=== PATIENT | female | born 1940 | race Caucasian/White ===

== ENCOUNTER 2016-07-23 06:32 | Day surgery (SDC) | payer MEDICARE, BC ==
[~2016-07-23 06:32] MED LIST: KETOROLAC TROMETHAMINE 0.45% 4 DROP/0.4 ML DROPERETTE OS PRN
[2016-07-23] MEDS: TROPICAMIDE 1% OPH SOLN 3 ML OS PRN ×3 (06:54→07:14)
[2016-07-23] MEDS: CYCLOPENTOLATE 0.2%/PHENYLEPHRINE 1% OPH SOLN 2 ML OS PRN ×3 (06:54→07:14)
[2016-07-23] MEDS: BESIFLOXACIN HCL 0.6% OPH SUSP 5 ML BOTTLE OS PRN ×4 (06:54→07:52)
[2016-07-23] MEDS: TETRACAINE HCL 0.5% OPH SOLN 2 ML OS PRN ×4 (06:55→07:35)
[2016-07-23] MEDS ORDERED: MIDAZOLAM 2 MG/2 ML INJ ONE (07:06)
[2016-07-23] MEDS ORDERED: LIDOCAINE 1% INJ-PF (10 MG/ML) 30 ML SDV ONE (07:07)
[2016-07-23] MEDS ORDERED: EPINEPHRINE INJ/PF 1 MG/1 ML AMPULE ONE (07:07)
[2016-07-23] MEDS ORDERED: CHONDR SU A NA/HYALUR INTRAOC KIT (SURGICARE) ONE (07:08)
--- NOTE | 2016-07-27 11:59 | [facility] DISCHARGE SUMMARY E ---
[facility] Discharge Summary NAME: NICOLA GONZALEZ AGE: 75Y ADMITTED: 07/23/2016 DISCHARGED: 07/23/2016 HISTORY OF PRESENT ILLNESS AND HOSPITAL COURSE: This is a 75-year-old female who underwent cataract extraction of her left eye. DIAGNOSIS: Cataract, left eye. HOSPITAL COURSE: She underwent surgery because she was having difficulty with glare from headlights, difficulty seeing medicine bottles. DISCHARGE INSTRUCTIONS: 1. She should be on a regular diet. 2. No bending at her waist and no heavy lifting. 3. She should use her Besivance, Ilevro, and Durezol at 3 p.m. and 8 p.m. and sleep with a rigid shield. 4. I will see her for her one-day postoperative tomorrow. DICTATING PHYSICIAN: TARA GONZALEZ M.D. [id number] PHY#: [id number] ID: [id number] JOB#: [id number] ACCT: [id number] cc:TARA GONZALEZ M.D. >
--- NOTE | 2016-07-27 11:59 | [facility] OPERATIVE REPORT E ---
[facility] Operative Report NAME: NICOLA GONZALEZ AGE: 75Y DATE OF SURGERY: 07/23/2016 ROOM: PREOPERATIVE DIAGNOSIS: Cataract, left eye. POSTOPERATIVE DIAGNOSIS: Cataract, left eye. OPERATION: Cataract extraction with intraocular lens implant of the left eye. SURGEON: TARA GONZALEZ M.D. ANESTHESIA: Topical. PROCEDURE: After obtaining appropriate consent, the patient's left eye was prepped and draped in sterile fashion as well as the surgeon in a sterile manner and cataract surgery was started. First a paracentesis blade was used to make a small side-port incision. Viscoelastic was used to inflate the anterior chamber. Next a 2.4 mm incision was made with the paracentesis blade. A continuous capsulorrhexis incision was made using a cystotome and Utrata forceps. Following this hydrodissection was carried out to make the lens fully loose and mobile and it was rotated 90 degrees. Following this, a tbwymh-oqm-tovejmm technique was used to phacoemulsify the lens with a CDE of 6.69. The remaining cortex was removed with irrigation/aspiration. Provisc was instilled into the capsular bag to inflate the bag. A SN60WF, 20.0 diopter lens was placed. The remaining viscoelastic material was removed with irrigation/aspiration. Following this, a 10-0 nylon suture was used to close the incision and it was found to be watertight. Vigamox was instilled in the eye and a protective shield was placed over the eye. The patient returned to the postoperative recovery in stable condition. DICTATING PHYSICIAN: TARA GONZALEZ M.D. [id number] PHY#: [id number] ID: [id number] JOB#: [id number] ACCT: [id number] cc:TARA GONZALEZ M.D. >
== END 2016-07-23 08:33 | disposition home or self-care (01) ==
LOC: SC 06:32
PROVIDERS: ATTEND Internal Medicine
PROC: 08RK3JZ Replacement of Left Lens with Synthetic Substitute, Percutaneous Approach (ICD-10-PCS; principal; 2016-07-23 07:30)
DX: H25.813 Combined forms of age-related cataract, bilateral (principal); M06.9 Rheumatoid arthritis, unspecified; E03.9 Hypothyroidism, unspecified; I10 Essential (primary) hypertension; J30.2 Other seasonal allergic rhinitis; Z87.891 Personal history of nicotine dependence; Z79.82 Long term (current) use of aspirin; Z79.899 Other long term (current) drug therapy
CPT/HCPCS: 66984; V2632; J2250; J3490 ×2; A9270; J0171; 142

== ENCOUNTER 2018-03-10 07:25 | Day surgery (SDC) | payer MEDICARE, BC ==
[~2018-03-10 07:25] MED LIST changes: +CHONDR SU A NA/HYALUR INTRAOC KIT (SURGICARE) ONE; +EPINEPHRINE INJ/PF 1 MG/1 ML AMPULE ONE; +KETOROLAC TROMETHAMINE 0.45% 4 DROP/0.4 ML DROPERETTE OD PRN; -KETOROLAC TROMETHAMINE 0.45% 4 DROP/0.4 ML DROPERETTE OS PRN; +LIDOCAINE 1% INJ-PF (10 MG/ML) 30 ML SDV ONE
[2018-03-10] MEDS: TROPICAMIDE 1% OPH SOLN 3 ML OD PRN ×3 (08:15→08:35)
[2018-03-10] MEDS: BESIFLOXACIN HCL 0.6% OPH SUSP 5 ML BOTTLE OD PRN ×3 (08:15→09:01)
[2018-03-10] MEDS: TETRACAINE HCL 0.5% OPH SOLN 4 ML OD PRN ×3 (08:15→08:37)
[2018-03-10] MEDS: CYCLOPENTOLATE 0.2%/PHENYLEPHRINE 1% OPH SOLN 2 ML OD PRN ×3 (08:15→08:35)
[2018-03-10] MEDS ORDERED: MIDAZOLAM 2 MG/2 ML INJ ONE (08:23)
--- NOTE | 2018-03-10 21:12 | [facility] OPERATIVE REPORT E ---
[facility] Operative Report NAME: NICOLA GONZALEZ AGE: 77Y DATE OF SURGERY: 03/10/2018 ROOM: PREOPERATIVE DIAGNOSIS: CATARACT, RIGHT EYE. POSTOPERATIVE DIAGNOSIS: CATARACT, RIGHT EYE. OPERATION: Cataract extraction with insertion of an IOL of the right eye. SURGEON: TARA GONZALEZ M.D. ANESTHESIA: Topical. PROCEDURE: After obtaining appropriate consent, the patient's right eye was prepped and draped in sterile fashion as well as the surgeon in a sterile manner and cataract surgery was started. First a paracentesis blade was used to make a side-port incision. Viscoelastic was used to inflate the anterior chamber. Next a 2.4 mm incision was made with a 2.4 mm blade, clear corneal temporally. A continuous capsulorrhexis was made using a cystotome and Utrata forceps. Following this hydrodissection was carried out to make the lens fully loose and mobile and it was rotated 90 degrees. Following this, a gwxiop-lrm-apaoosl technique was used to phacoemulsify the lens with a CDE of 7.71. The remaining cortex was removed with irrigation/aspiration. Provisc was instilled into the capsular bag to inflate the bag. A SN60WF, 19.0 diopter lens was placed. The remaining viscoelastic material was removed with irrigation/aspiration. Following this, the incision was found to be watertight. Besivance was instilled into the eye and a protective shield was placed over the eye. The patient returned to the postoperative recovery in stable condition. DICTATING PHYSICIAN: TARA GONZALEZ M.D. [id number] PHY#: [id number] ID: [id number] JOB#: [id number] ACCT: [id number] cc:TARA GONZALEZ M.D. >
--- NOTE | 2018-03-10 21:13 | [facility] DISCHARGE SUMMARY E ---
[facility] Discharge Summary NAME: NICOLA GONZALEZ AGE: 77Y ADMITTED: 03/10/2018 DISCHARGED: This is a 77-year-old female who underwent cataract extraction of the right eye. DIAGNOSIS: Cataract right eye. She underwent surgery because she was having trouble seeing words on the television. She should be on a regular diet. No bending at the waist and no heavy lifting. She should use her Besivance, Prolensa, and Durezol at 3:00 p.m. and 8:00 p.m. and sleep with a rigid shield. I will see her for her 1-day postop tomorrow. DICTATING PHYSICIAN: TARA GONZALEZ M.D. [id number] PHY#: [id number] ID: [id number] JOB#: [id number] ACCT: [id number] cc:TARA GONZALEZ M.D. >
== END 2018-03-10 09:41 | disposition home or self-care (01) ==
LOC: SC 07:25
PROVIDERS: ATTEND Internal Medicine
DX: H25.811 Combined forms of age-related cataract, right eye (principal); H43.813 Vitreous degeneration, bilateral; Z96.1 Presence of intraocular lens; I10 Essential (primary) hypertension; M06.9 Rheumatoid arthritis, unspecified; E03.9 Hypothyroidism, unspecified; Z87.891 Personal history of nicotine dependence; Z79.82 Long term (current) use of aspirin; Z79.51 Long term (current) use of inhaled steroids; Z79.899 Other long term (current) drug therapy
CPT/HCPCS: 66984; V2632; J2250; J3490 ×3; A9270; J0171; 142

== ENCOUNTER → 2018-09-14 | Outpatient (CLI) | payer MEDICARE, BC ==
--- NOTE | 2018-09-14 13:36 | RADIOLOGY REPORT (SQ) ---
EXAM DESCRIPTION: BARIUM SWALLOW ESOPHAGUS COMPLETED DATE/TIME: 09/14/2018 8:55 am REASON FOR STUDY: EARLY SATIETY (R68.81) R68.81 EARLY SATIETY COMPARISON: None. TECHNIQUE: Under fluoroscopic guidance, patient ingested effervescent granules followed by thick and thin barium. Fluoroscopic spot images and routine radiographic images acquired and stored on PACS. 12 MM BARIUM TABLET GIVEN: Yes. No significant delay in passage. LIMITATIONS: None. FLUOROSCOPY TIME: FLUORO TIME: 1 minutes 42 seconds of fluoroscopy was used. 8 images saved to PACS. FINDINGS: NEUROMUSCULAR COORDINATION OF SWALLOW: Normal. No aspiration. ESOPHAGEAL MOTILITY: Weak primary peristalsis with tertiary contractions in the distal half esophagus . ESOPHAGEAL MUCOSA: Normal mucosa without masses or ulceration. GASTRO-ESOPHAGEAL JUNCTION: No hiatal hernia. Mild gastroesophageal reflux. 12 mm barium tablet pas sed through the GE junction without delay. NON-GI TRACT STRUCTURES: No significant finding. OTHER: No other significant finding. IMPRESSION: ESOPHAGEAL DYSMOTILITY WITH REFLUX. COMMENT: Quality ID [id number]: Final reports for procedures using fluoroscopy that document radiation exp osure indices, or exposure time and number of fluorographic images (if radiation exposure indices are not available) TECHNICAL DOCUMENTATION: JOB ID: [id number] [employer]- All Rights Reserved Reading location - IP/workstation name: [email or web address]
== END ==
LOC: RAD 08:03
PROVIDERS: ATTEND Physician Assistant
DX: K22.4 Dyskinesia of esophagus (principal); K21.9 Gastro-esophageal reflux disease without esophagitis
CPT/HCPCS: 74220

== ENCOUNTER 2018-11-16 07:39 | Day surgery (SDC) | payer MEDICARE, BC ==
[~2018-11-16 07:39] MED LIST changes: -CHONDR SU A NA/HYALUR INTRAOC KIT (SURGICARE) ONE; +DIPHENHYDRAMINE HCL 50 MG/ML VIAL ONE; +EPINEPHRINE INJ 1 MG/10 ML DISP.SYRIN ONE; -EPINEPHRINE INJ/PF 1 MG/1 ML AMPULE ONE; +FENTANYL CITRATE INJ/PF 100 MCG/2 ML AMPUL ONE; +FLUMAZENIL INJ 0.5 MG/5 ML VIAL ONE; +GLUCAGON,HUMAN RECOMB 1 MG INJ ONE; -KETOROLAC TROMETHAMINE 0.45% 4 DROP/0.4 ML DROPERETTE OD PRN; -LIDOCAINE 1% INJ-PF (10 MG/ML) 30 ML SDV ONE; +NALOXONE HCL INJ/PF 0.4 MG/1 ML SDV ONE; +ONDANSETRON HCL INJ/PF 4 MG/2 ML SDV ONE
[2018-11-16] MEDS: MIDAZOLAM 2 MG/2 ML INJ ONE ×2 (08:00→08:03)
--- NOTE | 2018-11-16 08:15 | Operative Report ---
Operative Report DATE OF SURGERY: 11/16/18 Operative Report: The risks benefits and alternatives of the procedure explained to the patient in detail and informed consent is obtained.A GIF Olympus video scope was inserted into the patient's mouth and hypopharynx, the esophagus is identified intubated and insufflated, the scope was then advanced through the esophagus stomach and duodenum, retroflexion maneuver is done, the esophagus stomach and first and second portions of the duodenum examined. PREOPERATIVE DIAGNOSIS: Epigastric pain POSTOPERATIVE DIAGNOSIS: Gastritis status post biopsy rule out Helicobacter pylori. Gastric nodule/polyp status post biopsy it is suggestive of a inflammatory polyp OPERATION: EGD with biopsy SURGEON: STEPHANIE MEZA ANESTHESIA: Moderate Sedation - 3 mg of Versed, 25 mcg of fentanyl. Conscious sedation monitoring time 30 minutes. TISSUE REMOVED OR ALTERED: As noted above. COMPLICATIONS: None. ESTIMATED BLOOD LOSS: None. INTRAOPERATIVE FINDINGS: As noted above. PROCEDURE: Patient tolerated the procedure well. No immediate postprocedure complications are noted. Patient is discharged in good condition. Discharge date 11/16/2018. Discharge diet: Regular. Discharge activity: Regular. 2 to 3-week follow-up to discuss findings. Patient is instructed to call the office or proceed to the emergency room should there be any further problems or questions. Wait on the pathology.
[2018-11-16 09:23] VITALS: BP 132/65
== END 2018-11-16 09:35 | disposition home or self-care (01) ==
LOC: END 07:39
PROVIDERS: ATTEND Internal Medicine Gastroenterology
DX: K29.50 Unspecified chronic gastritis without bleeding (principal); K31.7 Polyp of stomach and duodenum; I10 Essential (primary) hypertension; E03.9 Hypothyroidism, unspecified; Z87.891 Personal history of nicotine dependence; Z79.899 Other long term (current) drug therapy; Z79.51 Long term (current) use of inhaled steroids
CPT/HCPCS: 43239; 88342 ×2; 88341 ×2; 88305 ×2; J2250; J3010; J0171; J1200; J1610; J2310; J2405; J3490

== ENCOUNTER → 2018-12-07 | Outpatient (CLI) | payer MEDICARE, BC ==
--- NOTE | 2018-12-07 16:25 | RADIOLOGY REPORT (SQ) ---
EXAM DESCRIPTION: CT ABD/PELVIS WITH IV ORAL COMPLETED DATE/TIME: 12/07/2018 10:23 am REASON FOR STUDY: (K31.89)OTHER DISEASES OF STOMACH AND DUODENUM K31.89 OTHER DISEASES OF STOMACH A ND DUODENUM COMPARISON: None. TECHNIQUE: CT scan of the abdomen and pelvis performed with intravenous and oral contrast using [place] scanning technique with dynamic intravenous contrast injection. Images reviewed with lung, soft t issue, and bone windows. Reconstructed coronal and sagittal MPR images reviewed. Delayed images for e valuation of the urinary system also acquired. All images stored on PACS. All CT scanners at this facility use dose modulation, iterative reconstruction, and/or weight based d osing when appropriate to reduce radiation dose to as low as reasonably achievable (ALARA). [facility]: Dose Right [facility]: CareDose [facility]: Dose Right [facility]: Teradose 4D [facility]: CallFire CONTRAST TYPE AND DOSE: contrast/concentration: Isovue 350.00 mg/ml; Total Contrast Delivered: 80.0 ml; Total Saline Delivered: 68.0 ml RENAL FUNCTION: GFR > 60. RADIATION DOSE: CT Rad equipment meets quality standard of care and radiation dose reduction techniq ues were employed. CTDIvol: 9.3 - 11.0 mGy. DLP: 966 mGy-cm.. LIMITATIONS: None. FINDINGS: LOWER CHEST: No significant findings. No nodules or infiltrates. LIVER: Tiny subcentimeter low-density lesion in the central liver without gross enhancement. Probabl e cyst but too small to further characterize. Liver otherwise normal. SPLEEN: Normal size. No focal lesions. PANCREAS: No masses. No significant calcifications. No adjacent inflammation or peripancreatic fluid collections. Pancreatic duct not dilated. GALLBLADDER: Cholelithiasis. No CT evidence acute cholecystitis. ADRENAL GLANDS: No significant masses or asymmetry. RIGHT KIDNEY AND URETER: No solid masses. No significant calcification. No hydronephrosis or hydroure ter. LEFT KIDNEY AND URETER: No solid masses. No significant calcification. No hydronephrosis or hydrouret er. AORTA AND VESSELS: Atherosclerotic. No aneurysm or dissection. Major arterial and venous structures look patent. RETROPERITONEUM: No retroperitoneal adenopathy, hemorrhage or masses. BOWEL AND PERITONEAL CAVITY: No gross gastric mass allowing for limited evaluation. No small bowel o bstruction. No significant hiatal hernia. The cecum projects well across the midline into the left lower quadrant. No overtly suspicious wall thickening. There is diverticulosis throughout the sigmo id colon which is pronounced. Doubt active diverticulitis. APPENDIX: Normal. PELVIS: No significant masses. Normal bladder. No free fluid. ABDOMINAL WALL: No masses. No hernias. BONES: No significant or acute findings. OTHER: No other significant finding. IMPRESSION: 1. Cholelithiasis without CT evidence of acute cholecystitis. 2. Extensive sigmoid diverticulosis without CT suggestion of active diverticulitis. 3. Atherosclerosis. TECHNICAL DOCUMENTATION: JOB ID: [id number] Quality ID # [id number]: Final reports with documentation of one or more dose reduction techniques (e.g., Au tomated exposure control, adjustment of the mA and/or kV according to patient size, use of iterative reconstruction technique) 2010 [employer]- All Rights Reserved Reading location - IP/workstation name: [email or web address]
== END ==
LOC: RAD 09:43
PROVIDERS: ATTEND Surgery
DX: K31.89 Other diseases of stomach and duodenum (principal); K80.20 Calculus of gallbladder without cholecystitis without obstruction; K57.30 Diverticulosis of large intestine without perforation or abscess without bleeding; I70.90 Unspecified atherosclerosis
CPT/HCPCS: 74177; 82565

== ENCOUNTER 2019-01-10 06:01 | Inpatient (IN) | payer MEDICARE, BC ==
[2019-01-02 09:41] LABS: ABSOLUTE BASOPHILS # (AUTO) 0.1 10^3/uL (0.0-0.2); ABSOLUTE EOSINOPHILS # (AUTO) 0.1 10^3/uL (0.0-0.6); ABSOLUTE LYMPHOCYTES (AUTO) 1.2 10^3/uL (0.5-4.7); ABSOLUTE MONOCYTES (AUTO) 0.3 10^3/uL (0.1-1.4); ABSOLUTE NEUT (AUTO) 2.5 10^3/uL (1.7-8.2); BASOPHILS % (AUTO) 1.7 % (0-2); EOSINOPHILS % (AUTO) 2.1 % (0-6); HEMATOCRIT 37.7 % (36.0-47.0); HEMOGLOBIN 12.7 g/dL (12.0-15.5); LYMPHOCYTES % (AUTO) 28.1 % (13-45); MEAN CORPUSCULAR HEMOGLOBIN 28.4 pg (27.0-33.4); MEAN CORPUSCULAR HGB CONC 33.7 g/dL (32.0-36.0); MEAN CORPUSCULAR VOLUME 84 fl (80-97); MONOCYTES % (AUTO) 8.2 % (3-13); PLATELET COUNT 187 10^3/uL (150-450); RED BLOOD COUNT 4.47 10^6/uL (3.72-5.28); RED CELL DISTRIBUTION WIDTH 14.5 % (11.5-14.0); SEGMENTED NEUTROPHILS % (AUTO) 59.9 % (42-78); TOTAL CELLS COUNTED % (AUTO) 100 %; WHITE BLOOD COUNT 4.2 10^3/uL (4.0-10.5)
[2019-01-02 10:07] LABS: ANION GAP 10 (5-19); BLOOD UREA NITROGEN 16 mg/dL (7-20); CALCIUM 9.5 mg/dL (8.4-10.2); CARBON DIOXIDE 27 mmol/L (22-30); CHLORIDE 105 mmol/L (98-107); GLUCOSE 92 mg/dL (75-110); POTASSIUM 4.1 mmol/L (3.6-5.0)
--- NOTE | 2019-01-02 23:44 | EKG REPORT ---
SEVERITY:- NORMAL ECG - SINUS RHYTHM : Confirmed by: Rosalio Cartagena 02-Jan-2019 23:43:28
[~2019-01-10 06:01] MED LIST changes: +CEFAZOLIN SODIUM 1 GM in DEXTROSE 5%-WATER 50 ML IV PRN; +DEXAMETHASONE SOD PHOSPHATE INJ 4 MG/1 ML VIAL ONE; -DIPHENHYDRAMINE HCL 50 MG/ML VIAL ONE; -EPINEPHRINE INJ 1 MG/10 ML DISP.SYRIN ONE; -FENTANYL CITRATE INJ/PF 100 MCG/2 ML AMPUL ONE; -FLUMAZENIL INJ 0.5 MG/5 ML VIAL ONE; -GLUCAGON,HUMAN RECOMB 1 MG INJ ONE; +GLYCOPYRROLATE 1 MG/5 ML VIAL ONE; +KETOROLAC TROMETHAMINE 60 MG/2 ML SDV ONE; +LACTATED RINGERS 1000 ML IV PRN; +LIDOCAINE 0.5% INJ-PF (5 MG/ML) 50 ML SDV SUBCUT PRN; +METRONIDAZOLE 500 MG/NS RTU 500 MG/100 ML RTUPB IV ONE; +METRONIDAZOLE 500 MG/NS RTU 500 MG/100 ML RTUPB IV PRN; -NALOXONE HCL INJ/PF 0.4 MG/1 ML SDV ONE; +NEOSTIGMINE METHYLSULFATE 10 MG/10 ML VIAL ONE; +ROCURONIUM BROMIDE INJ 50 MG/5 ML VIAL IV ONE
[2019-01-10] MEDS ORDERED: PROPOFOL INJ 200 MG/20 ML VIAL IV ONE (07:20)
[2019-01-10] MEDS ORDERED: MIDAZOLAM 2 MG/2 ML INJ ONE (07:20)
[2019-01-10] MEDS ORDERED: HYDROMORPHONE HCL INJ/PF 2 MG/ML AMPULE ONE ×2 (07:20→17:49)
[2019-01-10] MEDS ORDERED: FENTANYL CITRATE INJ/PF 100 MCG/2 ML AMPUL ONE ×2 (07:20→11:54)
[2019-01-10] MEDS ORDERED: LIDOCAINE 2% INJ (20 MG/ML) 20 ML MDV ONE (07:21)
[2019-01-10] MEDS ORDERED: BUPIVACAINE HCL 0.25 % INJ/PF (2.5 MG/1 ML) 30 ML VIAL ONE (07:45)
[2019-01-10] MEDS ORDERED: DIPHENHYDRAMINE HCL 50 MG/ML VIAL IV PRN (09:07)
[2019-01-10] MEDS ORDERED: MORPHINE SULFATE 10 MG/ML INJ IV PRN (09:07)
[2019-01-10] MEDS ORDERED: FENTANYL CITRATE INJ/PF 100 MCG/2 ML AMPUL IV PRN ×3 (09:07)
[2019-01-10] MEDS ORDERED: ONDANSETRON HCL INJ/PF 4 MG/2 ML SDV IV PRN (09:07)
[2019-01-10] MEDS ORDERED: OXYCODONE-ACETAMINOPHEN 5-325 MG TABLET PO PRN ×2 (09:07)
[2019-01-10] MEDS ORDERED: MEPERIDINE HCL/PF INJ 25 MG/1 ML DISP.SYRIN IV PRN (09:07)
[2019-01-10] MEDS ORDERED: BUPIVACAINE INJ/PF LIPOSOME/PF 266 MG/20 ML SDV ONE (10:48)
[2019-01-10] MEDS ORDERED: BUPIVACAINE HCL 0.25 % INJ/PF (2.5 MG/1 ML) 30 ML VIAL INJ ONE (10:58)
[2019-01-10] MEDS ORDERED: BUPIVACAINE INJ/PF LIPOSOME/PF 266 MG/20 ML SDV INJ ONE (10:58)
[2019-01-10] MEDS ORDERED: GLUCAGON,HUMAN RECOMB 1 MG INJ SUBCUT PRN (11:05)
[2019-01-10] MEDS ORDERED: DEXTROSE 40% GEL 15 GM TUBE PO PRN ×2 (11:05)
[2019-01-10] MEDS ORDERED: DEXTROSE 50%-WATER 25 GM/50 ML DISP.SYRIN IV PRN ×2 (11:05)
[2019-01-10] MEDS ORDERED: EPHEDRINE SULFATE INJ 50 MG/1 ML AMPULE ONE (11:18)
[2019-01-10] MEDS ORDERED: CEFAZOLIN 1 GM/D5W RTU 1 GM/50 ML RTUPB IV SCH (11:30)
--- NOTE | 2019-01-10 11:30 | Operative Report ---
Nonrecallable Operative Report DATE OF SURGERY: 01/10/19 PREOPERATIVE DIAGNOSIS: gastric mass, cholelithiasis POSTOPERATIVE DIAGNOSIS: gastric mass, cholelilthiasis OPERATION: laparoscopic partial gastrectomy and cholecystectomy SURGEON: BARRETT ANDERSON 1ST PLUG MAKING OPERATOR: RAMYA PEDERSON ANESTHESIA: GA TISSUE REMOVED OR ALTERED: gastric antrum and gallbladder COMPLICATIONS: none ESTIMATED BLOOD LOSS: 75 INTRAOPERATIVE FINDINGS: see dictation PROCEDURE: Patient was brought to the operating room awake alert in stable condition placed on the operating table supine position induced under general anesthesia intubated. A Ray catheter was placed. After appropriate timeout site verification the procedure commenced. Veress needle was placed into the umbilicus and the abdomen was insufflated with 6 L of CO2 gas infra umbilical 10 mm incision was made with a 15 blade and a 10 mm port placed in the abdominal cavity intra-abdominal visualization revealed no evidence of Veress needle or trocar injury. Under direct vision a 5 mm right upper quadrant trocar was placed a right lower quadrant 12 mm port was placed in a left-sided 5 mm port and an epigastric 5 mm port all under direct vision. The stomach was identified the mass could not easily be seen on the serosal side of the stomach. The duodenum was also identified. There was some adhesions of the duodenum to the gallbladder which were taken down with sharp dissection using the LigaSure device. Then using the LigaSure device we gained access to the lesser sac by dissecting the gastrocolic ligament away from the greater curvature the stomach from the duodenum all the way to the incisura. Once this was accomplished we continued our dissection right word to mobilize the first portion of the duodenum and identified the pylorus. We then came across the first portion of the duodenum just distal to the pylorus with one firing of the Endo VALENTINO stapler with a blue load. The staple line was reinforced with interrupted 2-0 silk. We then completely mobilized the lesser curvature the stomach with the LigaSure device and then came across the distal stomach proximal to the incisura with 2 firings of the Endo VALENTINO stapler with a blue load. The gastric antrum was removed and examined and was opened and we noted the mass just proximal to the pylorus there was sent that down the pathology. Pathology report came back as the mass was benign. We then turned attention to the ligament of Treitz a point was picked distal from the ligament Treitz about 40 cm we divided the small bowel with the Endo VALENTINO stapler with a blue load. We then divided the mesentery with LigaSure device. We created an enteroenterostomy between the biliary limb and the alimentary limb about 60 cm distal from the end of the staple line on the end of the [place] limb. This was done with the Endo VALENTINO stapler the staple holes were closed transversely with a stapler that we were reinforced with 2-0 silk and the mesenteric defect was closed with 3-0 Maxon. We then used the oral device 25 mm we passed into the mouth setting the anvil in the distal stomach. We placed the EEA stapler to the left upper quadrant incision into the end of the rhythm appears to the outside connected to the anvil and the stomach closed and fired creating a gastrojejunostomy. That was also reinforced with interrupted 2-0 silk. The donuts were examined and they were intact. We then turned attention to the gallbladder was placed on traction the hepatoduodenal ligament was dissected isolated and cystic duct and cystic artery both the structures were doubly ligated with a Endo Clip and divided leaving 2 Endoloops on the stay side of both duct and artery. The gallbladder was then dissected out of the liver bed with Bovie cautery placed in Endobag and removed through the right lower quadrant port site. Hemostasis of the liver bed was obtained with Bovie cautery. After good hemostasis the tyrese hepatis was examined again for examination of the duct stump and it was noted to be intact the surgical anastomoses were all again reexamined and all noted to be intact without any twists or defects in the mesentery. We then used a Kalen drain left in the tyrese hepatis next to the duodenal stump and in the tyrese hepatis and brought that out through a stab wound in the right upper quadrant. We then reduce the pneumoperitoneum remove the ports closed the right lower quadrant and left lower quadrant fascial defects with 0 Vicryl in the fascia and closed the umbilical port site with 0 Vicryl in the fascia. The skin was then closed with intracuticular 4-0 Biosyn and then Steri-Strips completed the procedure. Estimated blood loss for the procedure was 75 cc sponge and needle counts were correct x2. The patient was awakened in the operating extubated transferred recovery in stable condition. Ramya JUNE was present for the entire procedure for help with wound retraction wound closure.
[2019-01-10] MEDS ORDERED: ACETAMINOPHEN 1,000 MG/100 ML RTUPB IV ONE (11:54)
[2019-01-10] MEDS: HYDROMORPHONE HCL INJ/PF 2 MG/ML AMPULE ONE ×2 (12:29→12:39)
[2019-01-10] MEDS: HEPARIN SOD (PORCINE) 5,000 UNIT/ML 1 ML VIAL SUBCUT SCH ×2 (13:54→21:47)
[2019-01-10] MEDS: ACETAMINOPHEN INJ/PF 1000 MG/100 ML SDV IV SCH ×2 (13:54→18:07)
[2019-01-10] MEDS ORDERED: INFLUENZA QUAD (6MOS+) 2019-20 VAC 0.5 ML SYR IM ONE (14:10)
[2019-01-10] MEDS: MORPHINE SULFATE 10 MG/ML INJ IV PRN (14:18)
[2019-01-10] MEDS: METRONIDAZOLE 500 MG/NS RTU 500 MG/100 ML RTUPB IV SCH ×2 (14:18→18:47)
[2019-01-10] MEDS: ONDANSETRON HCL INJ/PF 4 MG/2 ML SDV IV PRN ×2 (15:07→21:25)
[2019-01-10] MEDS ORDERED: HYDRALAZINE HCL INJ/PF 20 MG/1 ML SDV IV PRN (16:47)
[2019-01-10] MEDS ORDERED: HYDROMORPHONE HCL INJ/PF 2 MG/ML AMPULE IV PRN (17:55)
[2019-01-10] MEDS: POTASSI CL 20 MEQ/D5-1/2NS 1L 1,000 ML IV PRN (19:37)
[2019-01-10] MEDS: FAMOTIDINE INJ/PF 20 MG/2 ML SDV IV SCH (21:25)
[2019-01-10] MEDS: HYDROMORPHONE HCL INJ/PF 2 MG/ML AMPULE IV PRN (21:40)
[2019-01-10] MEDS: CEFAZOLIN SODIUM 1 GM in DEXTROSE 5%-WATER 50 ML IV SCH (21:43)
[2019-01-11] MEDS: METRONIDAZOLE 500 MG/NS RTU 500 MG/100 ML RTUPB IV SCH ×2 (00:45→06:38)
[2019-01-11] MEDS: HYDROMORPHONE HCL INJ/PF 2 MG/ML AMPULE IV PRN ×2 (01:58→23:18)
[2019-01-11] MEDS: ACETAMINOPHEN INJ/PF 1000 MG/100 ML SDV IV SCH ×5 (01:59→23:17)
[2019-01-11] MEDS: CEFAZOLIN SODIUM 1 GM in DEXTROSE 5%-WATER 50 ML IV SCH ×3 (05:35→21:53)
[2019-01-11] MEDS: ONDANSETRON HCL INJ/PF 4 MG/2 ML SDV IV PRN ×3 (05:46→20:07)
[2019-01-11] MEDS: HEPARIN SOD (PORCINE) 5,000 UNIT/ML 1 ML VIAL SUBCUT SCH ×3 (06:13→21:54)
[2019-01-11 06:38] LABS: ABSOLUTE LYMPHOCYTES (AUTO) 0.7 10^3/uL (0.5-4.7); ABSOLUTE MONOCYTES (AUTO) 0.6 10^3/uL (0.1-1.4); ABSOLUTE NEUT (AUTO) 8.8 10^3/uL (1.7-8.2); BASOPHILS % (AUTO) 0.1 % (0-2); HEMATOCRIT 33.4 % (36.0-47.0); HEMOGLOBIN 11.2 g/dL (12.0-15.5); LYMPHOCYTES % (AUTO) 6.9 % (13-45); MEAN CORPUSCULAR HEMOGLOBIN 28.3 pg (27.0-33.4); MEAN CORPUSCULAR HGB CONC 33.5 g/dL (32.0-36.0); MEAN CORPUSCULAR VOLUME 84 fl (80-97); MONOCYTES % (AUTO) 6.2 % (3-13); PLATELET COUNT 168 10^3/uL (150-450); RED BLOOD COUNT 3.96 10^6/uL (3.72-5.28); RED CELL DISTRIBUTION WIDTH 14.3 % (11.5-14.0); SEGMENTED NEUTROPHILS % (AUTO) 86.8 % (42-78); TOTAL CELLS COUNTED % (AUTO) 100 %; WHITE BLOOD COUNT 10.1 10^3/uL (4.0-10.5)
[2019-01-11 06:59] LABS: ANION GAP 6 (5-19); BLOOD UREA NITROGEN 15 mg/dL (7-20); CALCIUM 8.4 mg/dL (8.4-10.2); CARBON DIOXIDE 27 mmol/L (22-30); CHLORIDE 104 mmol/L (98-107); GLUCOSE 121 mg/dL (75-110); POTASSIUM 3.9 mmol/L (3.6-5.0)
--- NOTE | 2019-01-11 07:51 | PDOC PROGRESS REPORT ---
Subjective Progress Note for:: 01/11/19 Subjective:: feels ok pain better, has had some nausea, dry heaves Reason For Visit: K31.89 OTHER DISEASES OF STOMACH AND DUODENUM Physical Exam Vital Signs: Temp Pulse Resp BP Pulse Ox 98.7 F 84 18 140/69 H 99 01/11/19 00:00 01/11/19 00:00 01/11/19 00:00 01/11/19 00:00 01/11/19 04:47 Intake & Output 01/10/19 01/11/19 01/12/19 06:59 06:59 06:59 Intake Total 0 3650 Output Total 1365 Balance 0 2285 Weight 71.21 kg 81.2 kg General appearance: PRESENT: no acute distress Head exam: PRESENT: normocephalic Eye exam: PRESENT: EOMI Mouth exam: PRESENT: moist Neck exam: PRESENT: full ROM Respiratory exam: PRESENT: clear to auscultation vidhya Cardiovascular exam: PRESENT: RRR Pulses: PRESENT: normal radial pulses, normal femoral pulses GI/Abdominal exam: PRESENT: soft Rectal exam: PRESENT: deferred Extremities exam: PRESENT: full ROM Musculoskeletal exam: PRESENT: full ROM Neurological exam: PRESENT: alert, awake, oriented to person, oriented to place Skin exam: PRESENT: dry Results Laboratory Results: 01/11/19 06:05 01/11/19 06:05 01/10/19 01/11/19 01/11/19 07:55 06:05 06:05 WBC 10.1 RBC 3.96 Hgb 11.2 L Hct 33.4 L MCV 84 MCH 28.3 MCHC 33.5 RDW 14.3 H Plt Count 168 Seg Neutrophils % 86.8 H Sodium 136.5 L Potassium 3.9 Chloride 104 Carbon Dioxide 27 Anion Gap 6 BUN 15 Creatinine 0.51 L Est GFR ( Amer) > 60 Glucose 121 H Calcium 8.4 Lipase 50.3 Blood Type A POSITIVE Antibody Screen NEGATIVE Assessment & Plan - Time Time Spent with patient: 25-34 minutes - Plan Summary Plan Summary: pod 1 s/p partial gastrectomy with mahad y reconstruction s/p cholecystectomy doing ok this am min nausea blayne iwth min op urine op good plan will strt reglan dc orr start clears dc flagyl
[2019-01-11] MEDS: FAMOTIDINE INJ/PF 20 MG/2 ML SDV IV SCH ×2 (09:10→21:54)
[2019-01-11] MEDS: POTASSI CL 20 MEQ/D5-1/2NS 1L 1,000 ML IV PRN ×2 (09:48→20:14)
[2019-01-11] MEDS ORDERED: LEVOTHYROXINE SODIUM 0.15 MG TABLET PO SCH (10:00)
[2019-01-11] MEDS: LEVOTHYROXINE SODIUM 0.05 MG TABLET PO SCH (10:23)
[2019-01-11] MEDS: METOCLOPRAMIDE HCL INJ/PF 10 MG/2 ML SDV IV SCH ×3 (11:05→23:17)
[2019-01-11] MEDS: MORPHINE SULFATE 10 MG/ML INJ IV PRN (13:42)
[2019-01-12] MEDS: METOCLOPRAMIDE HCL INJ/PF 10 MG/2 ML SDV IV SCH ×3 (05:40→17:11)
[2019-01-12] MEDS: ACETAMINOPHEN INJ/PF 1000 MG/100 ML SDV IV SCH ×4 (05:40→22:27)
[2019-01-12] MEDS: CEFAZOLIN SODIUM 1 GM in DEXTROSE 5%-WATER 50 ML IV SCH ×3 (05:41→22:27)
[2019-01-12] MEDS: LEVOTHYROXINE SODIUM 0.05 MG TABLET PO SCH (05:42)
--- NOTE | 2019-01-12 07:34 | PDOC PROGRESS REPORT ---
Subjective Progress Note for:: 01/12/19 Subjective:: feels ok vomited yesterday Reason For Visit: K31.89 OTHER DISEASES OF STOMACH AND DUODENUM Physical Exam Vital Signs: Temp Pulse Resp BP Pulse Ox 98.3 F 65 14 161/74 H 95 01/11/19 23:00 01/11/19 23:00 01/11/19 23:00 01/11/19 23:00 01/11/19 23:00 Intake & Output 01/11/19 01/12/19 01/13/19 06:59 06:59 06:59 Intake Total 4650 1318 Output Total 1365 1050 Balance 3285 268 Weight 81.2 kg 77.2 kg General appearance: PRESENT: no acute distress Head exam: PRESENT: normocephalic Eye exam: PRESENT: EOMI Ear exam: PRESENT: normal external ear exam Mouth exam: PRESENT: dry mucosa Neck exam: PRESENT: full ROM Respiratory exam: PRESENT: clear to auscultation vidhya Cardiovascular exam: PRESENT: RRR Pulses: PRESENT: normal radial pulses, normal femoral pulses GI/Abdominal exam: PRESENT: soft Rectal exam: PRESENT: deferred Extremities exam: PRESENT: full ROM Musculoskeletal exam: PRESENT: full ROM Neurological exam: PRESENT: alert, awake, oriented to person, oriented to place Psychiatric exam: PRESENT: appropriate affect Skin exam: PRESENT: dry Results Laboratory Results: 01/11/19 06:05 01/11/19 06:05 Assessment & Plan - Time Time Spent with patient: 15-24 minutes - Plan Summary Plan Summary: will start full liquids dulolax suppositiory today
[2019-01-12] MEDS: ONDANSETRON HCL INJ/PF 4 MG/2 ML SDV IV PRN (07:44)
[2019-01-12] MEDS: HYDROMORPHONE HCL INJ/PF 2 MG/ML AMPULE IV PRN (07:44)
[2019-01-12] MEDS ORDERED: BISACODYL 10 MG SUPP.RECT PR ONE (08:00)
[2019-01-12] MEDS: POTASSI CL 20 MEQ/D5-1/2NS 1L 1,000 ML IV PRN ×2 (09:00→22:34)
[2019-01-12] MEDS: HEPARIN SOD (PORCINE) 5,000 UNIT/ML 1 ML VIAL SUBCUT SCH ×2 (09:01→22:28)
[2019-01-12] MEDS: FAMOTIDINE INJ/PF 20 MG/2 ML SDV IV SCH ×2 (09:01→22:28)
[2019-01-13] MEDS: METOCLOPRAMIDE HCL INJ/PF 10 MG/2 ML SDV IV SCH ×2 (00:04→06:18)
[2019-01-13] MEDS: ACETAMINOPHEN INJ/PF 1000 MG/100 ML SDV IV SCH (06:12)
[2019-01-13] MEDS: CEFAZOLIN SODIUM 1 GM in DEXTROSE 5%-WATER 50 ML IV SCH (06:17)
[2019-01-13] MEDS: LEVOTHYROXINE SODIUM 0.05 MG TABLET PO SCH (06:18)
--- NOTE | 2019-01-13 08:37 | PDOC DISCHARGE SUMMARY ---
General - Admit/Disc Date/PCP Admission Date/Primary Care Provider: 01/10/19 11:05 CLARK BRANTLEY PA-C Discharge Date: 01/13/19 - Discharge Diagnosis Final Diagnosis: gastric mass, cholelitliasis - Assessment Summary: Ms. Gonzalez was admitted for elective partial gastrectomy and cholecystectomy for a known gastric mass seen as an outpatient. She underwent the procedure on the day of admission tolerated well and she had a routine benign postop course she was started on clear liquid diet on hospital day 1 which was slowly advanced to full liquid diet by the time of discharge today she is tolerating a full liquid diet having normal bowel function with normal bowel movements and is requesting to be discharged home and she is up and around in the hospital and having minimal amounts of pain she is ready for discharge today . She will be discharged home today on a full liquid diet she will be given a prescription for Pepcid 20 mg p.o. twice daily she will be followed up in my surgery clinic 7 to 10 days after discharge. - Additional Information Resuscitation Status: Full Code Discharge Diet: Full Liquids Discharge Activity: Activity As Tolerated, No Lifting Over 10 Pounds - She needs a follow-up appointment with me in 7 to 10 days after discharge Referrals: BARRETT ANDERSON MD [ACTIVE STAFF] - (1 week.) Home Medications: Levothyroxine Sodium [Synthroid 50 Mcg Tablet] 50 mcg PO Q6AM 06/26/16 Cetirizine HCl [Zyrtec 10 mg Tablet] 10 mg PO DAILY 11/16/18 Diphenhydramine HCl [Benadryl 25 mg Capsule] 25 mg PO HSP PRN 11/16/18 Calcium Carbonate/Vitamin D3 [Calcium 500 + Vit D Caplet] 1 tab PO DAILY 12/30/18 Telmisartan [Micardis 20 mg Tablet] 60 mg PO DAILY 01/11/19 History of Present Illiness History of Present Illness: NICOLA GONZALEZ is a 78 year old female Physical Exam Vital Signs: Temp Pulse Resp BP Pulse Ox 99.1 F 87 14 168/68 H 92 01/12/19 19:00 01/12/19 19:00 01/12/19 19:00 01/12/19 19:00 01/12/19 19:00 Intake & Output 01/12/19 01/13/19 01/14/19 06:59 06:59 06:59 Intake Total 2318 3186 Output Total 1050 10 Balance 1268 3176 Weight 77.2 kg 77.2 kg Results Laboratory Results: WBC 10.1 10^3/uL (4.0-10.5) 01/11/19 06:05 RBC 3.96 10^6/uL (3.72-5.28) 01/11/19 06:05 Hgb 11.2 g/dL (12.0-15.5) L 01/11/19 06:05 Hct 33.4 % (36.0-47.0) L 01/11/19 06:05 MCV 84 fl (80-97) 01/11/19 06:05 MCH 28.3 pg (27.0-33.4) 01/11/19 06:05 MCHC 33.5 g/dL (32.0-36.0) 01/11/19 06:05 RDW 14.3 % (11.5-14.0) H 01/11/19 06:05 Plt Count 168 10^3/uL (150-450) 01/11/19 06:05 Lymph % (Auto) 6.9 % (13-45) L 01/11/19 06:05 [place] % (Auto) 6.2 % (3-13) 01/11/19 06:05 Eos % (Auto) 0.0 % (0-6) 01/11/19 06:05 Baso % (Auto) 0.1 % (0-2) 01/11/19 06:05 Absolute Neuts (auto) 8.8 10^3/uL (1.7-8.2) H 01/11/19 06:05 Absolute Lymphs (auto) 0.7 10^3/uL (0.5-4.7) 01/11/19 06:05 Absolute Monos (auto) 0.6 10^3/uL (0.1-1.4) 01/11/19 06:05 Absolute Eos (auto) 0.0 10^3/uL (0.0-0.6) 01/11/19 06:05 Absolute Basos (auto) 0.0 10^3/uL (0.0-0.2) 01/11/19 06:05 Seg Neutrophils % 86.8 % (42-78) H 01/11/19 06:05 Sodium 136.5 mmol/L (137-145) L 01/11/19 06:05 Potassium 3.9 mmol/L (3.6-5.0) 01/11/19 06:05 Chloride 104 mmol/L (98-107) 01/11/19 06:05 Carbon Dioxide 27 mmol/L (22-30) 01/11/19 06:05 Anion Gap 6 (5-19) 01/11/19 06:05 BUN 15 mg/dL (7-20) 01/11/19 06:05 Creatinine 0.51 mg/dL (0.52-1.25) L 01/11/19 06:05 Est GFR ( Amer) > 60 (>60) 01/11/19 06:05 Est GFR (MDRD) Non-Af > 60 (>60) 01/11/19 06:05 Glucose 121 mg/dL (75-110) H 01/11/19 06:05 Calcium 8.4 mg/dL (8.4-10.2) 01/11/19 06:05 Lipase 50.3 U/L (23-300) 01/11/19 06:05 Blood Type A POSITIVE 01/10/19 07:55 Antibody Screen NEGATIVE 01/10/19 07:55
[2019-01-13 11:13] VITALS: BP 149/67
== END 2019-01-13 11:45 | disposition home or self-care (01) | DRG 328 ==
LOC: OROUT 06:01 → 5 06:01 → EDSTATUS 09:00 → OROUT 11:04 → 5 11:05
PROVIDERS: ADMIT Surgery; ATTEND Surgery
PROC: 0FT44ZZ Resection of Gallbladder, Percutaneous Endoscopic Approach (ICD-10-PCS; 2019-01-10)
PROC: 0DB74ZZ Excision of Stomach, Pylorus, Percutaneous Endoscopic Approach (ICD-10-PCS; 2019-01-10)
PROC: 0DHA3UZ Insertion of Feeding Device into Jejunum, Percutaneous Approach (ICD-10-PCS; 2019-01-10)
PROC: 0D164ZA Bypass Stomach to Jejunum, Percutaneous Endoscopic Approach (ICD-10-PCS; principal; 2019-01-10 08:00)
PROC: 3E02340 Introduction of Influenza Vaccine into Muscle, Percutaneous Approach (ICD-10-PCS; 2019-01-13)
DX: K31.89 Other diseases of stomach and duodenum (principal); K80.50 Calculus of bile duct without cholangitis or cholecystitis without obstruction; I10 Essential (primary) hypertension; Z23 Encounter for immunization; Z79.890 Hormone replacement therapy; Z79.899 Other long term (current) drug therapy; Z88.8 Allergy status to other drugs, medicaments and biological substances; Z87.891 Personal history of nicotine dependence
CPT/HCPCS: 36415; 790; 80048; 83690; 85025; 86850; 86900; 86901; 88305; 88331; 88342; 90686; 93005; 93010; C9290; J0131; J0690; J1100; J1170; J1644; J1885; J2250; J2270; J2405; J2704; J2710; J2765; J3010; J3480; J3490; J7060; S0028

== ENCOUNTER 2019-05-11 13:40 | Inpatient (IN) | payer MEDICARE, BC ==
--- NOTE | 2019-05-11 13:45 | ER Document Report ---
ED General - General Stated Complaint: GENERAL WEAKNESS Time Seen by Provider: 05/11/19 13:44 Notes: 78-year-old female with a history of cholecystectomy done in January which showed "some abnormal cells" that were not cancer, presents with generalized weakness nausea vomiting and decreased oral intake along with decreased stool output. She was doing fine until Wednesday when she developed nausea and vomiting and cannot tolerate liquids or solids. She is taking Zofran prescribed by her primary and it is not helping. She is not had a bowel movement since Wednesday and says that she has decreased gas as well and her stomach feels swollen. Denies jaundice she denies fever. TRAVEL OUTSIDE OF THE [place] IN LAST 30 DAYS: No - Related Data Allergies/Adverse Reactions: lisinopril Adverse Reaction (Verified 05/11/19 13:54) Past Medical History - Social History Smoking Status: Unknown if Ever Smoked Family History: Reviewed & Not Pertinent - Past Medical History Cardiac Medical History: Reports: Hx Hypertension Denies: Hx Coronary Artery Disease, Hx Heart Attack Pulmonary Medical History: Denies: Hx Asthma, Hx Bronchitis, Hx COPD, Hx Pneumonia Neurological Medical History: Denies: Hx Cerebrovascular Accident, Hx Seizures GI Medical History: Denies: Hx Hepatitis, Hx Hiatal Hernia, Hx Ulcer Musculoskeletal Medical History: Reports Hx Arthritis Infectious Medical History: Denies: Hx Hepatitis Past Surgical History: Reports: Hx Hysterectomy. Denies: Hx Mastectomy, Hx Open Heart Surgery, Hx Pacemaker - Immunizations Hx Diphtheria, Pertussis, Tetanus Vaccination: No Review of Systems - Review of Systems Notes: REVIEW OF SYSTEMS GEN: Denies fever, chills, weight loss ENT: Denies sore throat, nasal discharge, ear pain EYES: Denies blurry vision, eye pain, discharge CV: Denies chest pain, palpitations, edema RESP: Denies cough, shortness of breath, wheezing GI: See HPI MSK: Denies joint pain/swelling, edema, SKIN: Denies rash, skin lesions LYMPH: Denies swollen glands/lymph nodes NEURO: Denies headache, focal weakness or numbness, dizziness PSYCH: Denies depression, suicidal or homicidal ideation PHYSICAL EXAMINATION General: No acute distress, well-nourished Head: Atraumatic, normocephalic ENT: Mouth normal, oropharynx moist, no exudates or tonsillar enlargement Eyes: Conjunctiva normal, pupils equal, lids normal Neck: No JVD, supple, no guarding CVS: Normal rate, regular rhythm, no murmurs Resp: No resp distress, equal and normal breath sounds bilaterally GI: Mild distention no tympany decreased bowel sounds and tenderness in the right mid area Ext: No deformities, no edema, normal range of motion in upper and lower ext Back: No CVA or midline TTP Skin: No rash, warm Lymphatic: No lymphadeopathy noted Neuro: Awake, alert. Face symmetric. GCS 15. Physical Exam - Vital signs Vitals: Temp Resp Pulse Ox 98.2 F 15 96 05/11/19 13:58 05/11/19 13:58 05/11/19 13:58 Course - Re-evaluation Re-evalutation: 05/11/19 17:26 Patient presents abdominal pain after surgery was significant for obstruction Meds fluids n.p.o. imaging Imaging shows gastric outlet obstruction with severe gastric dilation. Discussed the patient with Dr. Santiago who came to the ED to evaluate will place NG tube and he will admit. - Vital Signs Vital signs: Temp Pulse Resp BP Pulse Ox 98.2 F 21 H 161/78 H 96 05/11/19 13:58 05/11/19 17:00 05/11/19 14:07 05/11/19 17:00 - Laboratory Result Diagrams: 05/11/19 14:10 05/11/19 14:10 Laboratory results interpreted by me: 05/11/19 05/11/19 14:10 14:10 MCV 74 L MCH 23.8 L RDW 20.0 H Lymph % (Auto) 11.9 L Seg Neutrophils % 80.8 H BUN 35 H Glucose 146 H Calcium 10.4 H Discharge - Discharge Clinical Impression: Gastric outlet obstruction Condition: Fair Disposition: ADMITTED INPATIENT Admitting Provider: Surgicalist Unit Admitted: Surgical Floor
[2019-05-11] MEDS ORDERED: NORMAL SALINE 1000 ML 1,000 ML IV ONE (13:46)
[2019-05-11] MEDS ORDERED: METOCLOPRAMIDE HCL INJ/PF 10 MG/2 ML SDV IV ONE (13:46)
[2019-05-11 14:32] LABS: ABSOLUTE LYMPHOCYTES (AUTO) 1.2 10^3/uL (0.5-4.7); ABSOLUTE MONOCYTES (AUTO) 0.7 10^3/uL (0.1-1.4); BASOPHILS % (AUTO) 0.5 % (0-2); EOSINOPHILS % (AUTO) 0.1 % (0-6); HEMATOCRIT 37.6 % (36.0-47.0); HEMOGLOBIN 12.1 g/dL (12.0-15.5); LYMPHOCYTES % (AUTO) 11.9 % (13-45); MEAN CORPUSCULAR HEMOGLOBIN 23.8 pg (27.0-33.4); MEAN CORPUSCULAR HGB CONC 32.3 g/dL (32.0-36.0); MEAN CORPUSCULAR VOLUME 74 fl (80-97); MONOCYTES % (AUTO) 6.7 % (3-13); PLATELET COUNT 256 10^3/uL (150-450); SEGMENTED NEUTROPHILS % (AUTO) 80.8 % (42-78); TOTAL CELLS COUNTED % (AUTO) 100 %; WHITE BLOOD COUNT 9.8 10^3/uL (4.0-10.5)
[2019-05-11 14:51] LABS: ALBUMIN 4.7 g/dL (3.5-5.0); ALKALINE PHOSPHATASE 82 U/L (38-126); ANION GAP 15 (5-19); ASPARTATE AMINO TRANSFERASE 28 U/L (14-36); BILIRUBIN,DIRECT 0.2 mg/dL (0.0-0.4); BILIRUBIN,TOTAL 0.9 mg/dL (0.2-1.3); BLOOD UREA NITROGEN 35 mg/dL (7-20); CALCIUM 10.4 mg/dL (8.4-10.2); CARBON DIOXIDE 25 mmol/L (22-30); CHLORIDE 103 mmol/L (98-107); GLUCOSE 146 mg/dL (75-110); TOTAL PROTEIN 7.8 g/dL (6.3-8.2)
--- NOTE | 2019-05-11 16:28 | RADIOLOGY REPORT (SQ) ---
EXAM DESCRIPTION: CT ABD/PELVIS WITH IV ONLY IMAGES COMPLETED DATE/TIME: 05/11/2019 2:53 pm REASON FOR STUDY: SBO. Upper abdominal pain, right upper quadrant and left upper quadrant pain. Pr ior hysterectomy, cholecystectomy, patient reports a gastrectomy for mass in stomach. COMPARISON: CT abdomen and pelvis, 12/07/2018. TECHNIQUE: CT scan of the abdomen and pelvis performed using helical scanning technique with dynamic intravenous contrast injection. No oral contrast. Images reviewed with lung, soft tissue, and bone windows. Reconstructed coronal and sagittal MPR images reviewed. Delayed images for evaluation of the urinary system also acquired. All images stored on PACS. All CT scanners at this facility use dose modulation, iterative reconstruction, and/or weight based d osing when appropriate to reduce radiation dose to as low as reasonably achievable (ALARA). [facility]: Dose Right [facility]: CareDose [facility]: Dose Right [facility]: Teradose 4D [facility]: Semblee_ CONTRAST TYPE AND DOSE: contrast/concentration: Isovue 350.00 mg/ml; Total Contrast Delivered: 67.0 ml; Total Saline Delivered: 56.0 ml RENAL FUNCTION: GFR > 60. RADIATION DOSE: CT Rad equipment meets quality standard of care and radiation dose reduction techniq ues were employed. CTDIvol: 4.6 - 4.6 mGy. DLP: 504 mGy-cm.. LIMITATIONS: None. FINDINGS: LOWER CHEST: Atelectasis in the lingula. Small pericardial effusion. Distended fluid-laura led esophagus. LIVER: Normal size and contour. No focal hepatic mass. Hepatic and portal veins are patent. No vidhya iary ductal dilation. SPLEEN: Normal size. No focal lesions. PANCREAS: No masses. No significant calcifications. No adjacent inflammation or peripancreatic fluid collections. Pancreatic duct not dilated. GALLBLADDER: Post cholecystectomy since previous examination. ADRENAL GLANDS: No significant masses or asymmetry. RIGHT KIDNEY AND URETER: No solid masses. No significant calcifications. No hydronephrosis or hyd roureter. LEFT KIDNEY AND URETER: No solid masses. Punctate nonobstructing left renal calculus. No obstructi ng renal or ureteral calculi. No hydronephrosis or hydroureter. AORTA AND VESSELS: No aneurysm. No dissection. Renal arteries, SMA, celiac without stenosis. RETROPERITONEUM: No retroperitoneal adenopathy, hemorrhage or masses. BOWEL AND PERITONEAL CAVITY: Markedly distended stomach with surgical anastomosis probably representi ng a distal gastric resection with gastro jejunal anastomosis. The small bowel is decompressed throu ghout its course distal to the anastomosis. There also appears to be a jejunojejunal anastomosis in the mid abdomen, relatively decompressed. Mild surrounding inflammatory change may represent expecte d postoperative change versus infectious or inflammatory process such as enteritis. There does not a ppear to be swirling of the vessels to suggest an internal hernia. No pneumatosis intestinalis. The colon is relatively decompressed. Extensive sigmoid diverticulosis without evidence of diverticulit is. Trace ascites in a and pericolic gutters. No pneumoperitoneum. APPENDIX: Normal. PELVIS: Urinary bladder has normal contour. Calcified pelvic phleboliths. The knee. ABDOMINAL WALL: No masses. No hernias. BONES: No significant or acute findings. OTHER: No other significant finding. IMPRESSION: 1. Interval partial gastrectomy with marked distention and fluid retention in the residual stomach an d distal esophagus suggestive of obstruction of the gastrojejunal anastomosis. The distal small suzy l is decompressed. 2. There is some inflammatory change and fluid involving loops of small bowel in the anterior right a bdomen which may represent acute enteritis or inflammatory change at the distal jejunojejunal anastom osis. No evidence of peritoneal abscess or perforation. 3. Small pericardial effusion. TECHNICAL DOCUMENTATION: JOB ID: [id number] Quality ID # [id number]: Final reports with documentation of one or more dose reduction techniques (e.g., Au tomated exposure control, adjustment of the mA and/or kV according to patient size, use of iterative reconstruction technique) 2010 [employer]- All Rights Reserved Reading location - IP/workstation name: [email or web address]
[2019-05-11] MEDS ORDERED: ONDANSETRON HCL INJ/PF 4 MG/2 ML SDV IV PRN (16:38)
--- NOTE | 2019-05-11 16:38 | PDOC H&P ---
History of Present Illness Admission Date/PCP: CLARK BRANTLEY PA-C Patient complains of: nausea vomiting History of Present Illness: NICOLA GONZALEZ is a 78 year old female7 with a history of partial gastrectomy for a distal gastric mass and cholecystectomy in January, presents with generalized weakness nausea vomiting and decreased oral intake along with decreased stool output. She was doing fine until Wednesday when she developed nausea and vomiting and cannot tolerate liquids or solids. She is taking Zofran prescribed by her primary and it is not helping. She is not had a bowel movement since Wednesday and says that she has decreased gas as well and her stomach feels swollen. Denies jaundice she denies fever. Past Medical History Cardiac Medical History: Reports: Hypertension Denies: Coronary Artery Disease, Myocardial Infarction Pulmonary Medical History: Denies: Asthma, Bronchitis, Chronic Obstructive Pulmonary Disease (COPD), Pneumonia Neurological Medical History: Denies: Seizures GI Medical History: Denies: Hepatitis, Hiatal Hernia Musculoskeltal Medical History: Reports: Arthritis Hematology: Reports: Anemia - HX OF, TOOK VIT B12 INJECTIONS Denies: Sickle Cell Disease Past Surgical History Past Surgical History: Reports: Hysterectomy Denies: Amputation, Mastectomy, Pacemaker Social History Smoking Status: Unknown if Ever Smoked Family History Family History: Reviewed & Not Pertinent Parental Family History Reviewed: No Children Family History Reviewed: NA Sibling(s) Family History Reviewed.: NA Medication/Allergy Home Medications: Levothyroxine Sodium [Synthroid 50 Mcg Tablet] 50 mcg PO Q6AM 06/26/16 Cetirizine HCl [Zyrtec 10 mg Tablet] 10 mg PO DAILY 11/16/18 Diphenhydramine HCl [Benadryl 25 mg Capsule] 25 mg PO HSP PRN 11/16/18 Calcium Carbonate/Vitamin D3 [Calcium 500 + Vit D Caplet] 1 tab PO DAILY 12/30/18 Telmisartan [Micardis 20 mg Tablet] 60 mg PO DAILY 01/11/19 Allergies/Adverse Reactions: lisinopril Adverse Reaction (Verified 05/11/19 13:54) Review of Systems Constitutional: PRESENT: fatigue, weight loss Eyes: ABSENT: as per HPI, visual disturbances, other Ears: ABSENT: as per HPI, hearing changes, other Nose, Mouth, and Throat: ABSENT: as per HPI, headache(s), mouth pain, sore throat, vertigo, other Breasts: ABSENT: as per HPI, other Cardiovascular: ABSENT: as per HPI, chest pain, dyspnea on exertion, edema, orthropnea, palpitations, other Genitourinary: ABSENT: as per HPI, difficulty urinating, dysuria, hematuria, nocturia, other Musculoskeletal: ABSENT: as per HPI, back pain, deformity, joint swelling, muscle weakness, other Integumentary: ABSENT: as per HPI, diaphoresis, erythema, lesions, pruritus, rash, wounds, other Neurological: ABSENT: as per HPI, abnormal gait, abnormal movements, abnormal speech, confusion, convulsions, dizziness, focal weakness, frequent falls, lack of coordination, memory loss, numbness, paresthesias, restless legs, syncope, tingling, tremor(s), vertigo, weakness, other Psychiatric: ABSENT: as per HPI, anxiety, depression, hallucinations, homidical ideation, suicidal ideation, other Endocrine: ABSENT: as per HPI, cold intolerance, flushing, heat intolerance, menstrual abnormalities, polydipsia, polyphagia, polyuria, other Hematologic/Lymphatic: ABSENT: as per HPI, easy bleeding, easy bruising, lymphadenopathy, other Allergic/Immunologic: ABSENT: as per HPI, seasonal rhinorrhea, other Physical Exam Vital Signs: Temp Pulse Resp BP Pulse Ox 98.2 F 10 L 161/78 H 99 05/11/19 13:58 05/11/19 14:07 05/11/19 14:07 05/11/19 14:07 Intake & Output 05/10/19 05/11/19 05/12/19 06:59 06:59 06:59 Intake Total 1000 Balance 1000 Weight 54.431 kg General appearance: PRESENT: no acute distress Head exam: PRESENT: normocephalic Eye exam: PRESENT: EOMI Ear exam: PRESENT: normal external ear exam Mouth exam: PRESENT: moist Neck exam: PRESENT: full ROM Respiratory exam: PRESENT: clear to auscultation vidhya Cardiovascular exam: PRESENT: RRR Pulses: PRESENT: normal radial pulses, normal femoral pulses Vascular exam: PRESENT: normal capillary refill Breast: PRESENT: Normal GI/Abdominal exam: PRESENT: soft Extremities exam: PRESENT: full ROM Musculoskeletal exam: PRESENT: full ROM Neurological exam: PRESENT: alert, awake, oriented to person, oriented to place Psychiatric exam: PRESENT: appropriate affect Skin exam: PRESENT: dry Results Laboratory Results: 05/11/19 14:10 05/11/19 14:10 05/11/19 05/11/19 14:10 14:10 WBC 9.8 RBC 5.10 Hgb 12.1 Hct 37.6 MCV 74 L MCH 23.8 L MCHC 32.3 RDW 20.0 H Plt Count 256 Seg Neutrophils % 80.8 H Sodium 142.8 Potassium 4.0 Chloride 103 Carbon Dioxide 25 Anion Gap 15 BUN 35 H Creatinine 0.69 Est GFR ( Amer) > 60 Glucose 146 H Calcium 10.4 H Total Bilirubin 0.9 AST 28 Alkaline Phosphatase 82 Total Protein 7.8 Albumin 4.7 Lipase 244.5 Impressions: Abdomen/Pelvis CT 05/11/19 13:45 IMPRESSION: 1. Interval partial gastrectomy with marked distention and fluid retention in the residual stomach and distal esophagus suggestive of obstruction of the gastrojejunal anastomosis. The distal small bowel is decompressed. 2. There is some inflammatory change and fluid involving loops of small bowel in the anterior right abdomen which may represent acute enteritis or inflammatory change at the distal jejunojejunal anastomosis. No evidence of peritoneal abscess or perforation. 3. Small pericardial effusion. Assessment & Plan - Diagnosis (1) Gastric outlet obstruction Is this a current diagnosis for this admission?: Yes - Plan Summary Plan Summary: impression gastric outlet obstruction after a partial gastric resectin with mahad y reconstruction. plan ng tube placemtn gastric decompression pt then will need upper endoscopy with possible anastomotic dilation.
[2019-05-11] MEDS ORDERED: PHARMACY COMMUNICATION ORDER MC NR (16:45)
--- NOTE | 2019-05-11 17:25 | RADIOLOGY REPORT (SQ) ---
EXAM DESCRIPTION: KUB/ABDOMEN (SINGLE VIEW) IMAGES COMPLETED DATE/TIME: 05/11/2019 5:08 pm REASON FOR STUDY: Check Placement of NG Tube COMPARISON: CT abdomen pelvis 05/11/2019 NUMBER OF VIEWS: One view. TECHNIQUE: Supine radiographic image of the abdomen acquired. LIMITATIONS: Pelvis cropped from the field of view FINDINGS: BOWEL GAS PATTERN: A nasogastric tube is present with the tip and side-port in the stomach . Massively distended stomach. Remainder of the bowel is decompressed. CALCIFICATIONS: No suspicious calcifications. SOFT TISSUES: No gross mass or suggestion of organomegaly. HARDWARE: None in the abdomen. BONES: No acute fracture. No worrisome bone lesions. OTHER: IV contrast in nondilated renal collecting systems. IMPRESSION: Nasogastric tube tip and side port in the stomach TECHNICAL DOCUMENTATION: JOB ID: [id number] 2010 [employer]- All Rights Reserved Reading location - IP/workstation name: [email or web address]
[2019-05-11] MEDS: POTASSI CL 20 MEQ/D5-1/2NS 1L 1,000 ML IV PRN (19:50)
[2019-05-12] MEDS: POTASSI CL 20 MEQ/D5-1/2NS 1L 1,000 ML IV PRN ×2 (05:46→16:46)
[2019-05-12 07:01] LABS: ABSOLUTE EOSINOPHILS # (AUTO) 0.1 10^3/uL (0.0-0.6); ABSOLUTE LYMPHOCYTES (AUTO) 1.4 10^3/uL (0.5-4.7); ABSOLUTE MONOCYTES (AUTO) 0.8 10^3/uL (0.1-1.4); ABSOLUTE NEUT (AUTO) 3.8 10^3/uL (1.7-8.2); BASOPHILS % (AUTO) 0.5 % (0-2); EOSINOPHILS % (AUTO) 2.1 % (0-6); HEMATOCRIT 31.4 % (36.0-47.0); HEMOGLOBIN 10.3 g/dL (12.0-15.5); LYMPHOCYTES % (AUTO) 23.2 % (13-45); MEAN CORPUSCULAR HEMOGLOBIN 24.2 pg (27.0-33.4); MEAN CORPUSCULAR HGB CONC 32.7 g/dL (32.0-36.0); MEAN CORPUSCULAR VOLUME 74 fl (80-97); MONOCYTES % (AUTO) 12.7 % (3-13); PLATELET COUNT 177 10^3/uL (150-450); RED BLOOD COUNT 4.24 10^6/uL (3.72-5.28); RED CELL DISTRIBUTION WIDTH 19.7 % (11.5-14.0); SEGMENTED NEUTROPHILS % (AUTO) 61.5 % (42-78); TOTAL CELLS COUNTED % (AUTO) 100 %; WHITE BLOOD COUNT 6.1 10^3/uL (4.0-10.5)
[2019-05-12 07:08] LABS: BLOOD UREA NITROGEN 25 mg/dL (7-20); CALCIUM 8.9 mg/dL (8.4-10.2); CARBON DIOXIDE 30 mmol/L (22-30); GLUCOSE 118 mg/dL (75-110); POTASSIUM 3.6 mmol/L (3.6-5.0)
[2019-05-12 07:16] LABS: CHLORIDE 107 mmol/L (98-107)
[2019-05-12 07:18] LABS: ANION GAP 4 (5-19)
--- NOTE | 2019-05-12 09:02 | PDOC PROGRESS REPORT ---
Subjective Progress Note for:: 05/12/19 Subjective:: feels better with ng. will plan on upper endoscopy possible revision of gastrojejunostomy Reason For Visit: GASTRIC OUTLET OBSTRUCTION Physical Exam Vital Signs: Temp Pulse Resp BP Pulse Ox 97.6 F 63 16 148/65 H 94 05/12/19 07:17 05/12/19 07:17 05/12/19 07:17 05/12/19 07:17 05/12/19 07:17 Intake & Output 05/11/19 05/12/19 05/13/19 06:59 06:59 06:59 Intake Total 1992 Output Total 2950 Balance -957 Weight 77.5 kg Results Laboratory Results: 05/12/19 06:27 05/12/19 06:27 05/11/19 05/11/19 05/12/19 14:10 14:10 06:27 WBC 9.8 6.1 RBC 5.10 4.24 Hgb 12.1 10.3 L Hct 37.6 31.4 L MCV 74 L 74 L MCH 23.8 L 24.2 L MCHC 32.3 32.7 RDW 20.0 H 19.7 H Plt Count 256 177 Seg Neutrophils % 80.8 H 61.5 Sodium 142.8 Potassium 4.0 Chloride 103 Carbon Dioxide 25 Anion Gap 15 BUN 35 H Creatinine 0.69 Est GFR ( Amer) > 60 Glucose 146 H Calcium 10.4 H Total Bilirubin 0.9 AST 28 Alkaline Phosphatase 82 Total Protein 7.8 Albumin 4.7 Lipase 244.5 05/12/19 06:27 WBC RBC Hgb Hct MCV MCH MCHC RDW Plt Count Seg Neutrophils % Sodium 141.0 Potassium 3.6 Chloride 107 Carbon Dioxide 30 Anion Gap 4 L BUN 25 H Creatinine 0.50 L Est GFR ( Amer) > 60 Glucose 118 H Calcium 8.9 Total Bilirubin AST Alkaline Phosphatase Total Protein Albumin Lipase Impressions: Abdomen/Pelvis CT 05/11/19 13:45 IMPRESSION: 1. Interval partial gastrectomy with marked distention and fluid retention in the residual stomach and distal esophagus suggestive of obstruction of the gastrojejunal anastomosis. The distal small bowel is decompressed. 2. There is some inflammatory change and fluid involving loops of small bowel in the anterior right abdomen which may represent acute enteritis or inflammatory change at the distal jejunojejunal anastomosis. No evidence of peritoneal abscess or perforation. 3. Small pericardial effusion. KUB X-Ray 05/11/19 16:40 IMPRESSION: Nasogastric tube tip and side port in the stomach Assessment & Plan - Diagnosis (1) Gastric outlet obstruction Is this a current diagnosis for this admission?: Yes
[2019-05-12] MEDS ORDERED: BENZOCAINE/MENTHOL SORE THROAT LOZENGE BUCCAL PRN (12:00)
[2019-05-12] MEDS ORDERED: ONDANSETRON HCL INJ/PF 4 MG/2 ML SDV IV PRN (15:00)
--- NOTE | 2019-05-12 16:20 | EKG REPORT ---
SEVERITY:- ABNORMAL ECG - SINUS RHYTHM NONSPECIFIC T ABNORMALITIES, LATERAL LEADS : Confirmed by: Rosalio Cartagena 12-May-2019 16:19:29
[2019-05-12] MEDS: BENZOCAINE/MENTHOL SORE THROAT LOZENGE BUCCAL PRN ×3 (16:46→22:43)
[2019-05-12] MEDS: MORPHINE SULFATE 10 MG/ML INJ IV PRN (22:42)
[2019-05-13] MEDS: POTASSI CL 20 MEQ/D5-1/2NS 1L 1,000 ML IV PRN ×3 (04:47→23:46)
[2019-05-13] MEDS ORDERED: LIDOCAINE 2% INJ-PF (20 MG/ML) 10 ML AMPUL ONE (08:16)
[2019-05-13] MEDS ORDERED: DEXAMETHASONE SOD PHOSPHATE INJ 4 MG/1 ML VIAL ONE (08:16)
[2019-05-13] MEDS ORDERED: FENTANYL CITRATE INJ/PF 100 MCG/2 ML AMPUL ONE ×2 (08:16→13:31)
[2019-05-13] MEDS ORDERED: ONDANSETRON HCL INJ/PF 4 MG/2 ML SDV ONE (08:16)
[2019-05-13] MEDS ORDERED: HYDROMORPHONE HCL INJ/PF 2 MG/ML AMPULE ONE (08:16)
[2019-05-13] MEDS ORDERED: PROPOFOL INJ 200 MG/20 ML VIAL IV ONE (08:17)
[2019-05-13] MEDS ORDERED: CEFAZOLIN 1 GM/D5W RTU 1 GM/50 ML RTUPB IV ONE (10:15)
[2019-05-13] MEDS ORDERED: VASOPRESSIN INJ 20 UNIT/1 ML VIAL ONE (10:43)
[2019-05-13] MEDS ORDERED: BUPIVACAINE INJ/PF LIPOSOME/PF 266 MG/20 ML SDV ONE (11:22)
[2019-05-13] MEDS ORDERED: DEXTROSE 50%-WATER 25 GM/50 ML DISP.SYRIN IV PRN ×2 (11:46)
[2019-05-13] MEDS ORDERED: DEXTROSE 40% GEL 15 GM TUBE PO PRN ×2 (11:46)
[2019-05-13] MEDS ORDERED: GLUCAGON,HUMAN RECOMB 1 MG INJ SUBCUT PRN (11:46)
[2019-05-13] MEDS ORDERED: HYDROMORPHONE HCL INJ/PF 2 MG/ML AMPULE IV PRN (11:53)
[2019-05-13] MEDS ORDERED: PHARMACY COMMUNICATION ORDER MC NR (12:00)
[2019-05-13] MEDS ORDERED: GLYCOPYRROLATE 1 MG/5 ML VIAL ONE (14:17)
[2019-05-13] MEDS ORDERED: PHENYLEPHRINE HCL INJ/PF 10 MG/1 ML SDV ONE (14:17)
[2019-05-13] MEDS ORDERED: NEOSTIGMINE METHYLSULFATE 10 MG/10 ML VIAL ONE (14:17)
[2019-05-13] MEDS: HEPARIN SOD (PORCINE) 5,000 UNIT/ML 1 ML VIAL SUBCUT SCH ×2 (14:40→21:40)
--- NOTE | 2019-05-13 15:27 | RADIOLOGY REPORT (SQ) ---
EXAM DESCRIPTION: KUB/ABDOMEN (SINGLE VIEW) IMAGES COMPLETED DATE/TIME: 05/13/2019 2:58 pm REASON FOR STUDY: Check Placement of NG Tube COMPARISON: KUB 05/29/2019 NUMBER OF VIEWS: One view. TECHNIQUE: Supine radiographic image of the abdomen acquired for nasogastric tube placement. LIMITATIONS: Pelvis not visualized FINDINGS: Nasogastric tube tip in the stomach fundus, side port at the GE junction. There are [place] in the mid epigastrium. Stomach fundus decompressed. No dilated small bowel loops or co melly. IMPRESSION: Nasogastric tube tip in the stomach, side port at the GE junction TECHNICAL DOCUMENTATION: JOB ID: [id number] 2010 [employer]- All Rights Reserved Reading location - IP/workstation name: [email or web address]
[2019-05-13] MEDS: MORPHINE SULFATE 10 MG/ML INJ IV PRN ×2 (17:24→21:38)
[2019-05-14] MEDS: MORPHINE SULFATE 10 MG/ML INJ IV PRN ×4 (01:42→21:26)
[2019-05-14] MEDS: HEPARIN SOD (PORCINE) 5,000 UNIT/ML 1 ML VIAL SUBCUT SCH ×3 (05:10→21:17)
[2019-05-14 05:18] LABS: ABSOLUTE LYMPHOCYTES (AUTO) 0.9 10^3/uL (0.5-4.7); ABSOLUTE NEUT (AUTO) 10.1 10^3/uL (1.7-8.2); BASOPHILS % (AUTO) 0.3 % (0-2); HEMATOCRIT 31.4 % (36.0-47.0); LYMPHOCYTES % (AUTO) 7.8 % (13-45); MEAN CORPUSCULAR HEMOGLOBIN 23.7 pg (27.0-33.4); MEAN CORPUSCULAR HGB CONC 31.9 g/dL (32.0-36.0); MEAN CORPUSCULAR VOLUME 74 fl (80-97); PLATELET COUNT 189 10^3/uL (150-450); RED BLOOD COUNT 4.22 10^6/uL (3.72-5.28); RED CELL DISTRIBUTION WIDTH 20.3 % (11.5-14.0); SEGMENTED NEUTROPHILS % (AUTO) 83.9 % (42-78); TOTAL CELLS COUNTED % (AUTO) 100 %
[2019-05-14 05:41] LABS: BLOOD UREA NITROGEN 12 mg/dL (7-20); CALCIUM 7.4 mg/dL (8.4-10.2); CARBON DIOXIDE 24 mmol/L (22-30); CHLORIDE 110 mmol/L (98-107); GLUCOSE 151 mg/dL (75-110)
[2019-05-14 05:50] LABS: ANION GAP 5 (5-19)
[2019-05-14] MEDS: POTASSI CL 20 MEQ/D5-1/2NS 1L 1,000 ML IV PRN ×3 (06:31→21:17)
[2019-05-14] MEDS ORDERED: BENZOCAINE/MENTHOL SORE THROAT LOZENGE BUCCAL PRN (08:48)
--- NOTE | 2019-05-14 08:50 | Operative Report ---
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 diagnostic laparoscopy with laparotomy and lysis of adhesions and. revision of gastroenterostomy. SURGEON: BARRETT ANDERSON ANESTHESIA: GA TISSUE REMOVED OR ALTERED: none COMPLICATIONS: none ESTIMATED BLOOD LOSS: 25cc. INTRAOPERATIVE FINDINGS: internal hernia causing a twist and ischemia of the proximal hadley limb at the gastroenterostomy PROCEDURE: see note Patient was brought to the negative pressure room and using code 19 precautions the procedure commenced. After appropriate timeout site verification procedure commenced. The Olympus gastroscope was passed into the posterior pharynx and visualization of the proximal esophagus revealed normal anatomy without mucosal abnormalities. Scope was then passed into the stomach there was a large amount of gastric content which required suctioning and irrigation for somewhat prolonged period of time. Once we were able to visualize the stomach I identified the gastrojejunal anastomosis. The anastomosis appeared to be quite narrowed and we made multiple attempts using the dilating balloon to dilate the anastomosis however I was really unable to pass the dilating balloon past the anastomosis. Therefore was unable to really get a dilation. We therefore abandon this portion of the procedure and moved onto the operating room. Using again covered precautions the patient was transferred to the operating room she was placed on the operating table in a supine position the abdomen was then prepped and draped and a Ray catheter was placed. A varies needle was placed into the umbilicus and the abdomen was insufflated with 6 L of CO2 gas infraumbilical 10 mm incision was made with a 15 blade and a 10 mm port placed in the abdominal cavity intra-abdominal visualization revealed no evidence of Veress needle or trocar injury and epigastric 5 mm port placed under direct vision as well as 2 lateral ports a 5 and a 12 on the right side of the abdominal wall. The stomach was markedly dilated I asked anesthesia to pass an NG tube back into the stomach and we decompressed it. I then noticed that the gastrojejunal anastomosis appeared to be somewhat ischemic and twisted it appeared that there is a number of loops of small bowel that were twisted underneath what appeared t o be a thick adhesion. After multiple attempts I was unable to reduce and therefore abandon the laparoscopic approach. Midline incision was used from the xiphoid to about 1 handsbreadth above the um bilicus dissection was carried out through subcutaneous tissue with Bovie cautery. The midline fascia was entered with Bovie cautery the pneumoperitoneum was reduced. We immediately noticed that that the patient had a number of loops of small bowel that were incarcerated and what appeared to be a Crow defect. I was able to reduce the twist. Once we did that we were able to decompress the small bowel however the gastrojejunal anastomosis appeared to be somewhat ischemic. It did not pink up as I would have hoped after reduction of the internal twist. Therefore I came across the distal stomach proximal to the anastomosis with one firing the VALENTINO stapler with a green load. We then resected the small area of ischemic jejunum approximately 5 cm long. This brought us back to normal-mitch earing serosa. The Hadley limb was still approximately 40 cm and I felt comfortable performing a new gastrojejunostomy this was done in 2 layers rod Molina De La Torre being 2-0 silk in the and running in a layer 3-0 Vicryl. At the termination of this patient had a new gastrojejunostomy it was antecolic the Crow defect was closed with interrupted 2 oh silks attaching the transverse mesocolon as well as some of the transverse serosa to the jejunal limb The abdomen was copiously irrigated normal saline suctioned dry the midline fascia was closed with interrupted #2 Vicryl sutures the skin was closed with standard skin clips. Sponge and needle counts were correct x2 Estimated blood loss was less than 50 cc The patient was then transferred back to the negative pressure room remaining intubated using a covert 19 precautions for extubation.
--- NOTE | 2019-05-14 08:55 | PDOC PROGRESS REPORT ---
Subjective Progress Note for:: 05/14/19 Subjective:: feels ok this am min if any pain Reason For Visit: GASTRIC OUTLET OBSTRUCTION Physical Exam Vital Signs: Temp Pulse Resp BP Pulse Ox 98.5 F 82 16 123/56 L 93 05/14/19 07:50 05/14/19 07:50 05/14/19 07:50 05/14/19 07:50 05/14/19 07:50 Intake & Output 05/13/19 05/14/19 05/15/19 06:59 06:59 06:59 Intake Total 2000 8263 Output Total 1070 2200 Balance 930 6063 Weight 58 kg 65 kg General appearance: PRESENT: no acute distress Head exam: PRESENT: normocephalic Eye exam: PRESENT: EOMI Ear exam: PRESENT: normal external ear exam Mouth exam: PRESENT: moist Neck exam: PRESENT: full ROM Respiratory exam: PRESENT: clear to auscultation vidhya Cardiovascular exam: PRESENT: RRR Pulses: PRESENT: normal radial pulses, normal femoral pulses Breast: PRESENT: Normal GI/Abdominal exam: PRESENT: soft Rectal exam: PRESENT: deferred Extremities exam: PRESENT: full ROM Musculoskeletal exam: PRESENT: full ROM Neurological exam: PRESENT: alert, awake, oriented to person, oriented to place Psychiatric exam: PRESENT: appropriate affect Skin exam: PRESENT: dry Results Laboratory Results: 05/14/19 04:45 05/14/19 04:45 05/14/19 05/14/19 04:45 04:45 WBC 12.0 H RBC 4.22 Hgb 10.0 L Hct 31.4 L MCV 74 L MCH 23.7 L MCHC 31.9 L RDW 20.3 H Plt Count 189 Seg Neutrophils % 83.9 H Sodium 138.5 Potassium 4.0 Chloride 110 H Carbon Dioxide 24 Anion Gap 5 BUN 12 Creatinine 0.45 L Est GFR ( Amer) > 60 Glucose 151 H Calcium 7.4 L Impressions: Abdomen/Pelvis CT 05/11/19 13:45 IMPRESSION: 1. Interval partial gastrectomy with marked distention and fluid retention in the residual stomach and distal esophagus suggestive of obstruction of the karina rojejunal anastomosis. The distal small bowel is decompressed. 2. There is some inflammatory change and fluid involving loops of small bowel in the anterior right abdomen which may represent acute enteritis or inflammatory change at the distal jejunojejunal anastomosis. No evidence of peritoneal a bscess or perforation. 3. Small pericardial effusion. KUB X-Ray 05/13/19 11:49 IMPRESSION: Nasogastric tube tip in the stomach, side port at the GE junction Assessment & Plan - Diagnosis (1) Gastric outlet obstruction Is this a current diagnosis for this admission?: Yes - Plan Summary Plan Summary: s/p endoscopy and revision of gastrojejunostomy iwth reduction of internal hernia\ doing well this am\ ng will remain in place as will orr pt can have ice chips increase activity
[2019-05-15] MEDS: POTASSI CL 20 MEQ/D5-1/2NS 1L 1,000 ML IV PRN (03:45)
[2019-05-15] MEDS: HEPARIN SOD (PORCINE) 5,000 UNIT/ML 1 ML VIAL SUBCUT SCH ×3 (06:19→21:05)
[2019-05-15 08:08] LABS: ABSOLUTE EOSINOPHILS # (AUTO) 0.1 10^3/uL (0.0-0.6); ABSOLUTE LYMPHOCYTES (AUTO) 1.1 10^3/uL (0.5-4.7); ABSOLUTE MONOCYTES (AUTO) 0.8 10^3/uL (0.1-1.4); ABSOLUTE NEUT (AUTO) 7.2 10^3/uL (1.7-8.2); BASOPHILS % (AUTO) 0.4 % (0-2); EOSINOPHILS % (AUTO) 1.5 % (0-6); HEMATOCRIT 27.4 % (36.0-47.0); LYMPHOCYTES % (AUTO) 11.8 % (13-45); MEAN CORPUSCULAR HEMOGLOBIN 23.9 pg (27.0-33.4); MEAN CORPUSCULAR HGB CONC 32.8 g/dL (32.0-36.0); MEAN CORPUSCULAR VOLUME 73 fl (80-97); MONOCYTES % (AUTO) 8.3 % (3-13); PLATELET COUNT 182 10^3/uL (150-450); RED BLOOD COUNT 3.76 10^6/uL (3.72-5.28); RED CELL DISTRIBUTION WIDTH 20.9 % (11.5-14.0); TOTAL CELLS COUNTED % (AUTO) 100 %; WHITE BLOOD COUNT 9.2 10^3/uL (4.0-10.5)
[2019-05-15 08:27] LABS: BLOOD UREA NITROGEN 6 mg/dL (7-20); CALCIUM 7.5 mg/dL (8.4-10.2); GLUCOSE 114 mg/dL (75-110); POTASSIUM 3.2 mmol/L (3.6-5.0)
[2019-05-15 08:33] LABS: CARBON DIOXIDE 24 mmol/L (22-30); CHLORIDE 110 mmol/L (98-107)
[2019-05-15 09:49] LABS: ANION GAP 2 (5-19)
--- NOTE | 2019-05-15 11:09 | PDOC PROGRESS REPORT ---
Subjective Progress Note for:: 05/15/19 Subjective:: feels better passed some flatus ng with decreased op Reason For Visit: GASTRIC OUTLET OBSTRUCTION Physical Exam Vital Signs: Temp Pulse Resp BP Pulse Ox 99.1 F 84 19 129/61 H 92 05/15/19 07:30 05/15/19 07:30 05/15/19 07:30 05/15/19 07:30 05/15/19 07:30 Intake & Output 05/14/19 05/15/19 05/16/19 06:59 06:59 06:59 Intake Total 8263 3230 Output Total 2200 975 Balance 6063 2255 Weight 65 kg 65.9 kg General appearance: PRESENT: no acute distress Head exam: PRESENT: normocephalic Eye exam: PRESENT: EOMI Mouth exam: PRESENT: moist Neck exam: PRESENT: full ROM Respiratory exam: PRESENT: clear to auscultation vidhya Cardiovascular exam: PRESENT: RRR Pulses: PRESENT: normal radial pulses, normal femoral pulses Vascular exam: PRESENT: normal capillary refill GI/Abdominal exam: PRESENT: soft Rectal exam: PRESENT: deferred Extremities exam: PRESENT: full ROM Musculoskeletal exam: PRESENT: full ROM Neurological exam: PRESENT: alert, awake, oriented to person, oriented to place Psychiatric exam: PRESENT: appropriate affect Skin exam: PRESENT: dry Results Laboratory Results: 05/15/19 08:00 05/15/19 08:00 05/15/19 05/15/19 08:00 08:00 WBC 9.2 RBC 3.76 Hgb 9.0 L Hct 27.4 L MCV 73 L MCH 23.9 L MCHC 32.8 RDW 20.9 H Plt Count 182 Seg Neutrophils % 78.0 Sodium 136.1 L Potassium 3.2 L Chloride 110 H Carbon Dioxide 24 Anion Gap 2 L BUN 6 L Creatinine 0.42 L Est GFR ( Amer) > 60 Glucose 114 H Calcium 7.5 L Impressions: Abdomen/Pelvis CT 05/11/19 13:45 IMPRESSION: 1. Interval partial gastrectomy with marked distention and fluid retention in the residual stomach and distal esophagus suggestive of obstruction of the gastrojejunal anastomosis. The distal small bowel is decompressed. 2. There is some inflammatory change and fluid involving loops of small bowel in the anterior right abdomen which may represent acute enteritis or inflammatory change at the distal jejunojejunal anastomosis. No evidence of peritoneal abscess or perforation. 3. Small pericardial effusion. KUB X-Ray 05/13/19 11:49 IMPRESSION: Nasogastric tube tip in the stomach, side port at the GE junction Assessment & Plan - Diagnosis (1) Gastric outlet obstruction Is this a current diagnosis for this admission?: Yes - Plan Summary Plan Summary: s/p revision of gastroenterostomy doing better will dc n g and orr today start clear liquids
[2019-05-15] MEDS: MORPHINE SULFATE 10 MG/ML INJ IV PRN ×2 (16:20→22:20)
[2019-05-16] MEDS: POTASSI CL 20 MEQ/D5-1/2NS 1L 1,000 ML IV PRN (01:34)
[2019-05-16] MEDS: HEPARIN SOD (PORCINE) 5,000 UNIT/ML 1 ML VIAL SUBCUT SCH (05:17)
[2019-05-16 08:12] LABS: ABSOLUTE EOSINOPHILS # (AUTO) 0.1 10^3/uL (0.0-0.6); ABSOLUTE LYMPHOCYTES (AUTO) 1.4 10^3/uL (0.5-4.7); ABSOLUTE MONOCYTES (AUTO) 0.4 10^3/uL (0.1-1.4); ABSOLUTE NEUT (AUTO) 2.9 10^3/uL (1.7-8.2); HEMATOCRIT 29.5 % (36.0-47.0); HEMOGLOBIN 9.7 g/dL (12.0-15.5); LYMPHOCYTES % (AUTO) 28.8 % (13-45); MEAN CORPUSCULAR HEMOGLOBIN 24.4 pg (27.0-33.4); MEAN CORPUSCULAR VOLUME 74 fl (80-97); MONOCYTES % (AUTO) 7.8 % (3-13); PLATELET COUNT 236 10^3/uL (150-450); RED BLOOD COUNT 3.98 10^6/uL (3.72-5.28); SEGMENTED NEUTROPHILS % (AUTO) 59.4 % (42-78); TOTAL CELLS COUNTED % (AUTO) 100 %; WHITE BLOOD COUNT 4.9 10^3/uL (4.0-10.5)
[2019-05-16 08:34] LABS: ANION GAP 7 (5-19); BLOOD UREA NITROGEN 5 mg/dL (7-20); CALCIUM 8.1 mg/dL (8.4-10.2); CARBON DIOXIDE 26 mmol/L (22-30); CHLORIDE 107 mmol/L (98-107); GLUCOSE 90 mg/dL (75-110); POTASSIUM 3.2 mmol/L (3.6-5.0)
--- NOTE | 2019-05-16 10:38 | PDOC DISCHARGE SUMMARY ---
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 - Assessment Summary: pt was admitted iwth gastric outlet obstruction s/p partial gastrectiomy with mahad y reconstruction 4 mos ago ng tube placed and pt taken to or on hospital day 2 for endoscopy and poss dilation reqired a open revison of the gastroenterostomy due to ischemia due to internal crow hernia pt ava procedkure well and post op h;ad a routine course ng was removed and pt started on liquids which she tolerated pt now having nl bowel function and ready for dc home - Additional Information Resuscitation Status: Full Code Discharge Diet: As Tolerated, Other (Comments) - avoid raw vegtables, and thick meats, Discharge Activity: No Lifting Over 10 Pounds Referrals: BARRETT ANDERSON MD [ACTIVE STAFF] - 05/24/19 8:15 am Home Medications: Levothyroxine Sodium [Synthroid 0.05 mg Tablet] 0.05 mg PO Q6AM 05/11/19 Telmisartan 40 mg PO DAILY 05/11/19 History of Present Illiness History of Present Illness: NICOLA GONZALEZ is a 78 year old female7 with a history of partial gastrectomy for a distal gastric mass and cholecystectomy in January, presents with generalized weakness nausea vomiting and decreased oral intake along with decreased stool output. She was doing fine until Wednesday when she developed nausea and vomiting and cannot tolerate liquids or solids. She is taking Zofran prescribed by her primary and it is not helping. She is not had a bowel movement since Wednesday and says that she has decreased gas as well and her stomach feels swollen. Denies jaundice she denies fever. Physical Exam Vital Signs: Temp Pulse Resp BP Pulse Ox 98.8 F 72 22 H 161/64 H 100 05/16/19 07:28 05/16/19 07:28 05/16/19 07:28 05/16/19 07:28 05/16/19 07:28 Intake & Output 05/15/19 05/16/19 05/17/19 06:59 06:59 06:59 Intake Total 3230 1880 Output Total 975 Balance 2255 1880 Weight 65.9 kg 64.3 kg Results Laboratory Results: WBC 4.9 10^3/uL (4.0-10.5) 05/16/19 07:45 RBC 3.98 10^6/uL (3.72-5.28) 05/16/19 07:45 Hgb 9.7 g/dL (12.0-15.5) L 05/16/19 07:45 Hct 29.5 % (36.0-47.0) L 05/16/19 07:45 MCV 74 fl (80-97) L 05/16/19 07:45 MCH 24.4 pg (27.0-33.4) L 05/16/19 07:45 MCHC 33.0 g/dL (32.0-36.0) 05/16/19 07:45 RDW 21.0 % (11.5-14.0) H 05/16/19 07:45 Plt Count 236 10^3/uL (150-450) 05/16/19 07:45 Lymph % (Auto) 28.8 % (13-45) 05/16/19 07:45 [place] % (Auto) 7.8 % (3-13) 05/16/19 07:45 Eos % (Auto) 3.0 % (0-6) 05/16/19 07:45 Baso % (Auto) 1.0 % (0-2) 05/16/19 07:45 Absolute Neuts (auto) 2.9 10^3/uL (1.7-8.2) 05/16/19 07:45 Absolute Lymphs (auto) 1.4 10^3/uL (0.5-4.7) 05/16/19 07:45 Absolute Monos (auto) 0.4 10^3/uL (0.1-1.4) 05/16/19 07:45 Absolute Eos (auto) 0.1 10^3/uL (0.0-0.6) 05/16/19 07:45 Absolute Basos (auto) 0.0 10^3/uL (0.0-0.2) 05/16/19 07:45 Seg Neutrophils % 59.4 % (42-78) 05/16/19 07:45 Sodium 139.5 mmol/L (137-145) 05/16/19 07:45 Potassium 3.2 mmol/L (3.6-5.0) L 05/16/19 07:45 Chloride 107 mmol/L (98-107) 05/16/19 07:45 Carbon Dioxide 26 mmol/L (22-30) 05/16/19 07:45 Anion Gap 7 (5-19) 05/16/19 07:45 BUN 5 mg/dL (7-20) L 05/16/19 07:45 Creatinine 0.39 mg/dL (0.52-1.25) L 05/16/19 07:45 Est GFR ( Amer) > 60 (>60) 05/16/19 07:45 Est GFR (MDRD) Non-Af > 60 (>60) 05/16/19 07:45 Glucose 90 mg/dL (75-110) 05/16/19 07:45 Calcium 8.1 mg/dL (8.4-10.2) L 05/16/19 07:45 Total Bilirubin 0.9 mg/dL (0.2-1.3) 05/11/19 14:10 Direct Bilirubin 0.2 mg/dL (0.0-0.4) 05/11/19 14:10 Neonat Total Bilirubin Not Reportable 05/11/19 14:10 Neonat Direct Bilirubin Not Reportable 05/11/19 14:10 Neonat Indirect Bili Not Reportable 05/11/19 14:10 AST 28 U/L (14-36) 05/11/19 14:10 ALT 19 U/L (<35) 05/11/19 14:10 Alkaline Phosphatase 82 U/L (38-126) 05/11/19 14:10 Total Protein 7.8 g/dL (6.3-8.2) 05/11/19 14:10 Albumin 4.7 g/dL (3.5-5.0) 05/11/19 14:10 Lipase 244.5 U/L (23-300) 05/11/19 14:10 Impressions: Abdomen/Pelvis CT 05/11/19 13:45 IMPRESSION: 1. Interval partial gastrectomy with marked distention and fluid retention in the residual stomach and distal esophagus suggestive of obstruction of the gastrojejunal anastomosis. The distal small bowel is decompressed. 2. There is some inflammatory change and fluid involving loops of small bowel in the anterior right abdomen which may represent acute enteritis or inflammatory change at the distal jejunojejunal anastomosis. No evidence of peritoneal abscess or perforation. 3. Small pericardial effusion. KUB X-Ray 05/11/19 16:40 IMPRESSION: Nasogastric tube tip and side port in the stomach KUB X-Ray 05/13/19 11:49 IMPRESSION: Nasogastric tube tip in the stomach, side port at the GE junction
[2019-05-16 11:05] VITALS: BP 127/60
== END 2019-05-16 13:00 | disposition home or self-care (01) | DRG 327 ==
LOC: ER 13:40 → EH 17:15 → 4S 19:18
PROVIDERS: ADMIT Surgery; ATTEND Surgery
PROC: 0D9670Z Drainage of Stomach with Drainage Device, Via Natural or Artificial Opening (ICD-10-PCS; 2019-05-11)
PROC: 0DQV0ZZ Repair Mesentery, Open Approach (ICD-10-PCS; 2019-05-13)
PROC: 0DJ08ZZ Inspection of Upper Intestinal Tract, Via Natural or Artificial Opening Endoscopic (ICD-10-PCS; 2019-05-13)
PROC: 0D160ZA Bypass Stomach to Jejunum, Open Approach (ICD-10-PCS; principal; 2019-05-13 08:00)
PROC: 0DBA0ZZ Excision of Jejunum, Open Approach (ICD-10-PCS; 2019-05-13 08:00)
DX: K31.1 Adult hypertrophic pyloric stenosis (principal); K46.0 Unspecified abdominal hernia with obstruction, without gangrene; I10 Essential (primary) hypertension; R53.1 Weakness; Z90.3 Acquired absence of stomach [part of]
CPT/HCPCS: 36415; 43249; 74018; 74177; 790; 80048; 80076; 83690; 85025; 93005; 93010; 94799; 96361; 96374; 99285; C9290; J0690; J1100; J1170; J1644; J2270; J2370; J2405; J2704; J2710; J2765; J3010; J3480; J3490; J7030

== ENCOUNTER → 2019-12-05 | Outpatient (CLI) | payer MEDICARE, BC ==
[2019-12-05 13:05] VITALS: BP 157/67
--- NOTE | 2019-12-05 13:06 | ER [facility] ASSESSMENT REPORT ---
Intake - In the Last 14 days Have you traveled outside [place]?: No Have you been in close contact with someone CONFIRMED: No Worked in Healthcare?: No - Symptoms Subjective Fever(Garretson feverish): No Chills: No Muscule Aches: No Runny Nose: No Sore Throat: No Cough (New or worsening chronic cough): No Shortness of breath: No Nausea or Vomiting: No Headache: No Abdominal Pain: No Diarrhea(3 or more loose stools in last 24 hours): No - Do you have any of the following Chronic lung disease: Asthma or emphysema or COPD: No Cystic Fibrosis: No Diabetes: No High Blood Pressure: Yes Cardiovascular Disease: Yes Chronic Kidney Disease: No Chronic Liver Disease: No Chronic blood disorder like Sickle Cell Disease: No Weak immune system due to disease or medication: No Neurologic condition that limits movement: No Developmental delay - Moderate to Severe: No Recent (within past 2 weeks) or current : No Morbid Obesity (>100 pounds over ideal weight): No - Objective Temperature: 98.7 F Pulse Rate: 57 Respiratory Rate: 14 Blood Pressure: 157/67 O2 Sat by Pulse Oximetry: 96 Objective: Given above, testing performed: If Testing Performed: Test Specimen Type Sent to General - General Information source: Patient Notes: Patient presents to the [facility] for screening for the coronavirus. Patient denies any symptoms at this time although has a history of high blood pressure and is a former smoker. - Related Data Allergies/Adverse Reactions: lisinopril Adverse Reaction (Verified 05/11/19 13:54) Past Medical History - General Information source: Patient - Social History Smoking Status: Former Smoker Family History: Reviewed & Not Pertinent - Past Medical History Cardiac Medical History: Reports: Hx Hypertension Denies: Hx Coronary Artery Disease, Hx Heart Attack Pulmonary Medical History: Denies: Hx Asthma, Hx Bronchitis, Hx COPD, Hx Pneumonia Neurological Medical History: Denies: Hx Cerebrovascular Accident, Hx Seizures GI Medical History: Denies: Hx Hepatitis, Hx Hiatal Hernia, Hx Ulcer Musculoskeletal Medical History: Reports Hx Arthritis Psychiatric Medical History: Denies: Hx Depression Infectious Medical History: Denies: Hx Hepatitis Past Surgical History: Reports: Hx Cholecystectomy, Hx Hysterectomy Physical Exam - Notes Notes: The patient was evaluated during the global Covid 19 pandemic, and that diagnosis was suspected/considered upon their initial presentation. Their evaluation, treatment and testing was consistent with current guidelines for patients who present with complaints or symptoms that may be related to Covid 19. Full physical exam could not be performed due to covid 19 isolation protocols. Constitutional: Nontoxic appearance, no acute distress Eyes: Nonicteric, extraocular movements intact, sclera clear Cardiovascular: Heart rate and rhythm regular, no JVD Respiratory: Breath sounds clear bilaterally, nonlabored breathing, no use of accessory muscles, no tachypnea Gastrointestinal: Abdomen not distended Muculoskeletal: Moves all extremities well Skin: Normal color Neuro: Awake alert oriented, normal speech Psych: Normal mood and affect abstract Diagnostic Results Laboratory Results: Patient presents with concerns about for possible Covid 19. Patient does not have emergency worrying symptoms such as difficulty breathing, shortness of breath, chest pain, pressure, confusion or cyanosis. Patient appears suitable for discharge as vital signs are stable and patient is nontoxic in appearance. Good return precautions have been discussed with patient, patient verbalized understanding and is agreeable with discharge plan of care at this time. Patient Education/Counseling Counseling/Education: Patient was provided with discharge information including: As a person under investigation for Covid 19, the [place] department of Health and Human Services, division of public health advises you to adhere to the following guidance until your test results are reported to you. If your test result is positive, you will receive additional information from your provider and your local health department at that time. Remain at home until you are cleared by the health provider or public health authorities. Keep a log of visitors to your home, notify any visitors to your home of your isolation status. If you plan to move to a new address or leave the county, notify the local health department in your County. Call your doctor or seek care if you have an urgent medical need. Before seeking medical care, call ahead to get instructions from the provider before arriving at the medical office clinic or hospital. Notify them that you are being tested for the virus that causes Covid 19 so that arrangements can be made, as necessary, to prevent transmission to others in the healthcare setting. Next, notify the local health department in your county. If a medical emergency arises and you need to call 911, inform the first responders that you are being tested for the virus that causes Covid 19. Next, notify the local health department in your county. [facility] Discharge - Discharge Clinical Impression: Encounter for screening laboratory testing for COVID-19 virus Condition: Stable Disposition: Home; Selfcare
[2019-12-05 14:52] LABS: A TYPE INFLUENZA AG NEGATIVE (NEGATIVE); B INFLUENZA AG NEGATIVE (NEGATIVE)
== END ==
LOC: RDC 12:08
PROVIDERS: ATTEND Nurse Practitioner Family
DX: Z03.818 Encounter for observation for suspected exposure to other biological agents ruled out (principal)
CPT/HCPCS: 87070; 87880; 87804; U0003; C9803; 87635